=== PATIENT | male | born 1955 | race Caucasian/White ===

== ENCOUNTER 2017-02-03 01:11 | Inpatient (IN) | payer OTHER, MEDICARE ==
[~2017-02-03] VITALS: Ht 167.6 cm; Wt 77.6 kg
[2017-02-03] VITALS (13 sets, daily range): BP systolic 100–154; BP diastolic 63–96; PULSE 67–92; RESP 16–20; TEMP 96.7–98.1; O2SAT 94–100
[~2017-02-03 01:11] MED LIST: CHOL1CAP6 PO; DIPH25 PO; FLUO20TA20 PO; FOLI1TAB PO; LACT20SO4 PO; LASI20TA PO; METHO500 PO; PERC10TA27 PO; PRAV20 PO; PROP20TA3 PO; PROT40TA PO; QUET1TAB65 PO; QUET300 PO; SUPETAB30 PO; VITA100T13; Z.0.WALKERFRONT
[2017-02-03] MEDS ORDERED: PROP20TA3 PO (01:49)
[2017-02-03] MEDS ORDERED: LACTPOW (01:49)
[2017-02-03] MEDS ORDERED: PRAV20TA2 PO (01:49)
[2017-02-03] MEDS ORDERED: QUET300XR PO (01:49)
[2017-02-03] MEDS ORDERED: FURO1TAB62 PO (01:49)
[2017-02-03] MEDS ORDERED: FLUO20CA4 PO (01:49)
[2017-02-03] MEDS ORDERED: LACT10SO27 PO (01:49)
[2017-02-03] MEDS ORDERED: PANT20 PO (01:49)
[2017-02-03] MEDS ORDERED: BENA25CA4 (01:49)
[2017-02-03] MEDS ORDERED: DIAZ5TAB PO (01:52)
[2017-02-03] MEDS ORDERED: SPIR25TA PO (01:52)
[2017-02-03] MEDS ORDERED: RESP: ALBUTEROL 2.5 MG/IPRATROPIUM 0.5 MG NEB (SCH) NEB ONE ×2 (02:30→05:30)
[2017-02-03] MEDS ORDERED: SODIUM CHLORIDE 0.9% FLUSH 10 ML FLUSH IV FLUSH PRN (02:30)
[2017-02-03 02:38] LABS: CHLORIDE 99 MEQ/L (98-107); POTASSIUM 3.5 MEQ/L (3.5-5.1); SODIUM (NA) 138 MEQ/L (136-145)
[2017-02-03 02:42] LABS: ANION GAP 11 MEQ/L (5-15); BICARBONATE 28.2 MEQ/L (21.0-32.0); BLOOD UREA NITROGEN 11 MG/DL (7-18); MAGNESIUM 2.3 MG/DL (1.5-2.5)
[2017-02-03 02:43] LABS: AUTOMATED NEUTROPHIL # 14.8 TH/MM3 (1.8-7.7); BASOPHIL # 0.2 TH/MM3 (0-0.2); BASOPHIL % 1.1 % (0.0-2.0); EOSINOPHIL # 0.1 TH/MM3 (0-0.4); EOSINOPHIL % 0.4 % (0.0-4.0); HEMATOCRIT 35.6 % (39.0-51.0); LYMPH % 5.9 % (9.0-44.0); MEAN CELL VOLUME 87.5 FL (80.0-100.0); MEAN CORPUSCULAR HEMOGLOBIN 29.4 PG (27.0-34.0); MEAN CORPUSCULAR HGB CONC 33.6 % (32.0-36.0); MONO % 6.7 % (0.0-8.0); NEUT % 85.9 % (16.0-70.0); PLATELET COUNT 299 TH/MM3 (150-450); RED BLOOD COUNT 4.07 MIL/MM3 (4.50-5.90); WHITE BLOOD COUNT 17.3 TH/MM3 (4.0-11.0)
[2017-02-03 02:45] LABS: ALT (GPT) 61 U/L (12-78); AST (GOT) 22 U/L (15-37); GLOMERULAR FILTRATION RATE 47 ML/MIN (>89)
[2017-02-03] MEDS ORDERED: MORPHINE SULFATE 4 MG/ML INJ IV PUSH ONE ×2 (02:45→05:00)
[2017-02-03] MEDS ORDERED: ONDANSETRON HCL 4 MG/2 ML VIAL IV PUSH ONE (02:45)
[2017-02-03 02:46] LABS: TOTAL BILIRUBIN ADULT 0.8 MG/DL (0.2-1.0)
--- NOTE | 2017-02-03 02:47 | PD ---
HPI Chief Complaint: Abdominal Pain Time Seen by Provider: 02:16 Travel History International Travel<30 days: No Contact w/Intl Traveler<30days: No Traveled to known affect area: No History of Present Illness HPI 61-year-old male presents to the emergency department by private transportation for complaint of shortness of breath, cough, nausea, vomiting, diarrhea, and abdominal pain. Patient states symptoms began after eating old ice cream. Patient states symptoms have been present for approximately 1 day of progressively worsening. Patient has history of cirrhosis with intermittent abdominal pain. Patient states she's used milk of magnesia and Pepto-Bismol without symptomatically relief. Patient denies hematemesis coffee-ground emesis melena or hematochezia. Patient is also been coughing up yellow sputum. Patient denies fever or chills. No complaint of chest pain. Patient rates abdominal pain 7/10 in intensity. Patient is able to identify exacerbating or alleviating factors. Patient denies other dietary indiscretion well water ingestion or foreign travel. PFSH Past Medical History Narrative Medical Hypertension dyslipidemia chest pain anxiety depression bipolar disorder cirrhosis COPD renal insufficiency tonsillectomy appendectomy; denies alcohol for greater than a year denies tobacco use for greater than a year; nursing notes reviewed Arthritis: No Asthma: No Autoimmune Disease: No Bipolar Disorder: Yes Anxiety: Yes Depression: Yes Heart Rhythm Problems: Yes Cancer: Yes Cardiovascular Problems: Yes High Cholesterol: Yes Chemotherapy: No Chest Pain: Yes Congestive Heart Failure: No Cirrhosis: Yes COPD: No Cerebrovascular Accident: No Diabetes: No Diminished Hearing: No Endocrine: No Gastrointestinal Disorders: Yes GERD: Yes Genitourinary: Yes Headaches: Yes Hiatal Hernia: Yes (LEFT INGUINAL) Hypertension: Yes Implanted Vascular Access Dvce: No Kidney Stones: No Musculoskeletal: Yes Neurologic: Yes Psychiatric: Yes Reproductive: No Respiratory: No Migraines: No Radiation Therapy: No Renal Failure: Yes Seizures: No Ulcer: No Past Surgical History Abdominal Surgery: Yes (HERNIA REPAIR, APPENDECTOMY) Appendectomy: Yes Cardiac Surgery: No Ear Surgery: No Endocrine Surgery: No Eye Surgery: Yes (LASIK) Genitourinary Surgery: No Neurologic Surgery: No Oral Surgery: Yes (TONSILLECTOMY) Thoracic Surgery: No Tonsillectomy: Yes Other Surgery: Yes (SALIVARY GLAND REMOVAL) Social History Alcohol Use: No (ETOH ABUSE) Tobacco Use: No (previous smoker) Substance Use: Yes (MARIJUANA ) Allergies-Medications (Allergen,Severity, Reaction): Coded Allergies: No Known Allergies (Verified , 02/03/17) Reported Meds & Prescriptions Reported Meds & Active Scripts Active Reported Spironolactone 25 Mg Tab 12.5 Mg PO DAILY Diazepam 5 Mg Tab 5 Mg PO BID PRN Benadryl Allergy (Diphenhydramine HCl) 25 Mg Cap Pravastatin 20 Mg Tab 20 Mg PO DAILY Propranolol (Propranolol HCl) 20 Mg Tab 20 Mg PO Q12HR Seroquel XR (Quetiapine Fumarate) 300 Mg Tab 300 Mg PO DAILY Protonix (Pantoprazole Sodium) 20 Mg Tab 20 Mg PO DAILY Lasix (Furosemide) 20 Mg Tab 20 Mg PO DAILY Fluoxetine (Fluoxetine HCl) 20 Mg Cap 20 Mg PO DAILY Lactulose Liq (Lactulose (Encephalopathy) Liq) 19 Gm/15 Ml Soln 30 Ml PO TID Review of Systems Except as stated in HPI: all other systems reviewed are Neg General / Constitutional: No: Fever, Chills HENT: No: Congestion Cardiovascular: No: Chest Pain or Discomfort, Diaphoresis, Dyspnea on exertion Respiratory: Positive: Shortness of Breath, No: Wheezing Gastrointestinal: Positive: Nausea, Vomiting, Diarrhea, Abdominal Pain, No: Hematemesis, Hematochezia, Loss of Appetite Genitourinary: No: Dysuria, Flank Pain Musculoskeletal: No: Myalgias Skin: No Rash Neurologic: No: Weakness Psychiatric: No: Anxiety Endocrine: No: Heat Intolerance Hematologic/Lymphatic: No: Easy Bruising Physical Exam Narrative GENERAL: Well-developed well-nourished male in no acute distress no respiratory distress SKIN: Warm and dry. HEAD: Normocephalic. EYES: No scleral icterus. No injection or drainage. NECK: Supple, trachea midline. No JVD or lymphadenopathy. CARDIOVASCULAR: Regular rate and rhythm without murmurs, gallops, or rubs. RESPIRATORY: Breath sounds equal bilaterally. No accessory muscle use. GASTROINTESTINAL: Abdomen soft, diffusely tender right upper quadrant and right lower quadrant greater than left upper quadrant/lower quadrant, nondistended. No guarding no rebound. No pulsatile mass. MUSCULOSKELETAL: No cyanosis, or edema. BACK: Nontender without obvious deformity. No CVA tenderness. Data Data Last Documented VS Vital Signs Date Time Temp Pulse Resp B/P Pulse Ox O2 Delivery O2 Flow Rate FiO2 02/03/17 05:30 94 21 02/03/17 05:00 18 02/03/17 04:24 69 145/78 02/03/17 04:21 98.0 Orders Complete Blood Count With Diff (02/03/17 02:16) Comprehensive Metabolic Panel (02/03/17 02:16) Lipase (02/03/17 02:16) Urinalysis - C+S If Indicated (02/03/17 02:16) Iv Access Insert/Monitor (02/03/17 02:16) Ecg Monitoring (02/03/17 02:16) Oximetry (02/03/17 02:16) Sodium Chloride 0.9% Flush (Ns Flush) (02/03/17 02:30) Electrocardiogram (02/03/17 02:16) Chest, Single Ap (02/03/17 02:16) Albuterol-Ipratropium Neb (Duoneb Neb) (02/03/17 02:30) Troponin I (02/03/17 02:16) Magnesium (Mg) (02/03/17 02:16) Ondansetron Inj (Zofran Inj) (02/03/17 02:45) Morphine Inj (Morphine Inj) (02/03/17 02:45) Ct Abd/Pel W Iv Contrast(Rout) (02/03/17 ) Ct Thorax/ Chest Wo Iv Contras (02/03/17 ) Lactic Acid (02/03/17 03:51) Blood Culture (02/03/17 03:51) Piperacil-Tazo 4.5 Gm Premix (Zosyn 4.5 (02/03/17 04:00) Iohexol 350 Inj (Omnipaque 350 Inj) (02/03/17 04:04) Morphine Inj (Morphine Inj) (02/03/17 05:00) Albuterol-Ipratropium Neb (Duoneb Neb) (02/03/17 05:30) Admit Order (Ed Use Only) (02/03/17 ) ^ Saline Lock (02/03/17 05:38) Resp Oxygen Allen C Titrat 1-4 L (02/03/17 ) Notify Dr: Other (02/03/17 05:38) Sodium Chloride 0.9% Flush (Ns Flush) (02/03/17 09:00) Sodium Chloride 0.9% Flush (Ns Flush) (02/03/17 05:45) NPO (02/03/17 05:41) Labs Laboratory Tests Test 02/03/17 02/03/17 02/03/17 02:10 03:00 04:00 White Blood Count 17.3 TH/MM3 Red Blood Count 4.07 MIL/MM3 Hemoglobin 12.0 GM/DL Hematocrit 35.6 % Mean Corpuscular Volume 87.5 FL Mean Corpuscular Hemoglobin 29.4 PG Mean Corpuscular Hemoglobin 33.6 % Concent Red Cell Distribution Width 13.0 % Platelet Count 299 TH/MM3 Mean Platelet Volume 8.9 FL Neutrophils (%) (Auto) 85.9 % Lymphocytes (%) (Auto) 5.9 % Monocytes (%) (Auto) 6.7 % Eosinophils (%) (Auto) 0.4 % Basophils (%) (Auto) 1.1 % Neutrophils # (Auto) 14.8 TH/MM3 Lymphocytes # (Auto) 1.0 TH/MM3 Monocytes # (Auto) 1.2 TH/MM3 Eosinophils # (Auto) 0.1 TH/MM3 Basophils # (Auto) 0.2 TH/MM3 CBC Comment DIFF FINAL Differential Comment Sodium Level 138 MEQ/L Potassium Level 3.5 MEQ/L Chloride Level 99 MEQ/L Carbon Dioxide Level 28.2 MEQ/L Anion Gap 11 MEQ/L Blood Urea Nitrogen 11 MG/DL Creatinine 1.50 MG/DL Estimat Glomerular Filtration 47 ML/MIN Rate Random Glucose 152 MG/DL Calcium Level 8.7 MG/DL Magnesium Level 2.3 MG/DL Total Bilirubin 0.8 MG/DL Aspartate Amino Transf 22 U/L (AST/SGOT) Alanine Aminotransferase 61 U/L (ALT/SGPT) Alkaline Phosphatase 183 U/L Troponin I LESS THAN 0.02 NG/ML Total Protein 7.7 GM/DL Albumin 3.1 GM/DL Lipase 121 U/L Urine Color YELLOW Urine Turbidity CLEAR Urine pH 7.0 Urine Specific [place] 1.008 Urine Protein NEG mg/dL Urine Glucose (UA) NEG mg/dL Urine Ketones NEG mg/dL Urine Occult Blood NEG Urine Nitrite NEG Urine Bilirubin NEG Urine Leukocyte Esterase NEG Urine WBC 0-2 /hpf Urine Squamous Epithelial 0-5 /hpf Cells Microscopic Urinalysis Comment CULT NOT INDICATED Lactic Acid Level 1.9 mmol/L [facility] Medical Decision Making Medical Screen Exam Complete: Yes Emergency Medical Condition: Yes Medical Record Reviewed: Yes Interpretation(s) EKG: Normal sinus rhythm rate [address] elevation or injury pattern change or ectopy noted CBC & BMP Diagram 02/03/17 02:10 Differential Diagnosis Abdominal pain, gastritis, pancreatitis, biliary colic/cholecystitis, gastroenteritis, colitis, diverticulitis, ACS, myocardial infarction, exacerbation COPD, pneumonia Narrative Course @ 2:42 after patient up out of bed to bathroom returns with complaint of increasing abdominal pain; patient administered DuoNeb updraft 1 and ordered morphine sulfate 4 mg IV along with Zofran 4 mg IV At 3:10 AM lab values resulted patient is identified to have leukocytosis of 17, 300 with left shift; lab values are grossly normal range; review of medical records indicates patient has had several imaging studies identified he does have in fact gallstones and chronic thickening of the gallbladder wall consistent with chronic gallbladder disease; last imaging in the system 2015. CT abdomen and pelvis ordered. At 4:30 patient noting recurrent pain is aware that chest x-ray was remarkable for possible infiltrate versus mass CT of the chest was ordered along with CT abdomen and pelvis it is 5:17 AM reading of the CT thorax and CTA abdomen and pelvis remain pending ; patient given additional morphine 2 mg IV for recurrent pain At 5:[address] reading per radiologist Dr. Mckeon no evidence of acute abdominal or pelvic process no masses are identified; cholelithiasis (" there are multiple stones within the gallbladder without wall thickening or pericholecystic fluid the largest measures 6 mm") case discussed with MD; patient comfortable at this time but may need further diagnostic imaging. In his 7 AM patient again complaining of abdominal pain ultrasound gallbladder added to patient's workup may require mrcp Sepsis Criteria SIRS Criteria (2 or more): WBC > 99409, < 4000 or > 10% bands Physician Communication Physician Communication call placed to [facility] service; discussed with Dr Devine --will admit to her service Diagnosis Primary Impression: Abdominal pain Qualified Code: R10.13 - Epigastric pain Additional Impressions: Lung infiltrate Cholelithiasis Qualified Code: K80.20 - Calculus of gallbladder without cholecystitis without obstruction Admitting Information Admitting Physician Requests: Luz Kaba MD February 03, 2017 02:47
[2017-02-03 02:48] LABS: ALKALINE PHOSPHATASE 183 U/L (45-117)
--- NOTE | 2017-02-03 02:58 | RADHPO ---
EXAM DATE/TIME: 02/03/2017 02:36 [facility] COMPARISON: CHEST SINGLE AP, February 27, 2014, 12:49. INDICATIONS : Chest pain. MEDICAL HISTORY : None. SURGICAL HISTORY : None. ENCOUNTER: Initial ACUITY: 1 day PAIN SCORE: 7/10 LOCATION: Bilateral chest FINDINGS: The cardiac silhouette is enlarged in transverse diameter. There is alveolar opacity adjacent to the minor fissure in the right middle lobe which may reflect an area of pneumonia or a neoplasm. CT scan is recommended for further evaluation if clinically indicated. No pleural effusions are identified. T he left lung is free of acute parenchymal opacity. The maximal diameter of this finding is 3.3 cm. CONCLUSION: 1. Pneumonia versus mass in the right base. CT scan is recommended for further evaluation if clinical ly indicated. Camilo Mckeon MD on February 03, 2017 at 2:55 Board Certified Radiologist. This report was verified electronically.
[2017-02-03 02:59] LABS: HEMO FLAGS DIFF FINAL
[2017-02-03 03:48] LABS: BLOOD, URINE NEG (NEG); GLUCOSE,URINE NEG (NEG); KETONE, URINE NEG (NEG); NITRITE,URINE NEG (NEG)
[2017-02-03 03:56] LABS: URINE COLOR YELLOW (YELLW/STRAW)
[2017-02-03 03:58] LABS: COMMENT (UR) CULT NOT INDICATED; CULTURE IF INDICATED CULT NOT INDICATED; SQUAMOUS EPITHELIAL CELL URINE 0-5 /hpf (0-5); WBC, URINE 0-2 /hpf (0-5)
[2017-02-03] MEDS ORDERED: PIPERACIL-TAZO 4.5 GM PREMIX 100 ML IV ONE (04:00)
[2017-02-03] MEDS ORDERED: IOHEXOL 350 MG/ML 10 ML VIAL (for RAD DIAG) IV ONE (04:04)
--- NOTE | 2017-02-03 05:15 | RADHPO ---
EXAM DATE/TIME: 02/03/2017 03:29 [facility] COMPARISON: No previous studies available for comparison. INDICATIONS : Abdominal pain. Nausea. Vomiting. Diarrhea. IV CONTRAST: 75 cc Omnipaque 350 (iohexol) IV ORAL CONTRAST: No oral contrast ingested. RADIATION DOSE: 19.02 CTDIvol (mGy) MEDICAL HISTORY : Cirrhosis. Hypertension. Carcinoma, oral cavity. SURGICAL HISTORY : Appendectomy. Inguinal hernia repair. ENCOUNTER: Initial ACUITY: 1 day PAIN SCALE: 10/10 LOCATION: Bilateral upper quadrant TECHNIQUE: Volumetric scanning of the abdomen and pelvis was performed. Using automated exposure control and ad justment of the mA and/or kV according to patient size, radiation dose was kept as low as reasonably achievable to obtain optimal diagnostic quality images. FINDINGS: Examination of the lung bases demonstrates no abnormality. No pleural fluid is identified. No pulmona ry nodules are present. The liver and spleen are normal in size and no focal defects are identified. There are multiple stones within the gallbladder without wall thickening or pericholecystic fluid the largest measuring 6 mm. The pancreas demonstrates no evidence of mass and there is no dilatation of the pancreatic duct. The adrenal glands and kidneys appear normal bilaterally. No hydronephrosis or m ass lesions are identified. Examination of the pelvis demonstrates no evidence of free fluid or pelvic mass. No abnormally enlarg ed inguinal or retroperitoneal lymph nodes are present. The bladder is unremarkable. CONCLUSION: 1. No evidence of acute abdominal or pelvic process. No masses are identified. 2. Cholelithiasis Camilo Mckeon MD on February 03, 2017 at 5:08 Board Certified Radiologist. This report was verified electronically.
--- NOTE | 2017-02-03 05:21 | RADHPO ---
EXAM DATE/TIME: 02/03/2017 03:44 [facility] COMPARISON: No previous studies available for comparison. INDICATIONS : Pneumonia versus mass in the right base. RADIATION DOSE: 19.35 CTDIvol (mGy) MEDICAL HISTORY : Hypertension. Cirrhosis. Carcinoma, oral cavity. SURGICAL HISTORY : None. ENCOUNTER: Initial ACUITY: 1 day PAIN SCALE: 10/10 LOCATION: chest TECHNIQUE: Volumetric scanning of the chest was performed. Using automated exposure control and adjustment of t he mA and/or kV according to patient size, radiation dose was kept as low as reasonably achievable to obtain optimal diagnostic quality images. FINDINGS: There is a 5.2 x 3.7 cm mass in the right middle lobe. Malignancy is not excluded. No pleural effusio ns are identified. Examination of the mediastinum demonstrates no abnormally enlarged lymph nodes by CT criteria. No axi llary or hilar abnormalities are identified. Coronary artery calcifications are present. CONCLUSION: 1. 5.2 x 3.7 cm mass in the right middle lobe. Malignancy is not excluded. This would be accessible t o percutaneous biopsy. Camilo Mckeon MD on February 03, 2017 at 5:14 Board Certified Radiologist. This report was verified electronically.
[2017-02-03] MEDS ORDERED: NALOXONE HCL 0.4 MG/ML AMP IV PRN (05:45)
[2017-02-03] MEDS ORDERED: ONDANSETRON HCL 4 MG/2 ML VIAL IVP PRN (05:45)
[2017-02-03] MEDS ORDERED: SODIUM CHLORIDE 0.9% FLUSH 10 ML FLUSH IVF PRN (05:45)
[2017-02-03] MEDS ORDERED: MORPHINE SULFATE 4 MG/ML INJ IV PUSH PRN (06:00)
[2017-02-03] MEDS ORDERED: HYDROmorphone HCL PF 1 MG/ML VIAL IV PUSH ONE ×2 (06:45→11:15)
--- NOTE | 2017-02-03 08:29 | RADHPO ---
EXAM DATE/TIME: 02/03/2017 07:40 [facility] COMPARISON: US ABDOMEN - GALLBLADDER, November 01, 2015, 9:50. INDICATIONS : Gallstones. MEDICAL HISTORY : Hypercholesterolemia. Hypertension. Hernia, inguinal. Head trauma. Syncope. Numbness. Chest pain. Irr egular heartbeat. GERD. Renal failure. Cirrhosis. Degenerative disc disease. Bipolar disorder. Depre ssion. Anxiety. ETOH abuse. SURGICAL HISTORY : Tonsillectomy. Appendectomy. Inguinal hernia repair. Lasik. Salivary gland removed. ENCOUNTER: Initial ACUITY: 1 day PAIN SCORE: 4/10 LOCATION: Right upper quadrant MEASUREMENTS: LIVER: 16.7 cm length COMMON DUCT: 8 mm RIGHT KIDNEY: 9.4 x 5.4 x 5.7 cm FINDINGS: LIVER: Heterogeneous echotexture without focal lesion or ductal dilatation. Very tiny amount of ascites in a perihepatic distribution. COMMON DUCT: No intraluminal mass or stone visualized. GALLBLADDER: Dependent area of increased echogenicity suggesting sludge/small stones. PANCREAS: The visualized portions are within normal limits. RIGHT KIDNEY: No evidence of hydronephrosis, stone, or mass. CONCLUSION: 1. Dependent sludge/small stones in the gallbladder lumen, unchanged. 2. Heterogeneous hepatic echotexture suggesting scattered fatty infiltration. No focal mass lesions. 3. CBD is mildly prominent at 8 mm. 4. Very small amount of perihepatic ascites. Bang Archibald MD on February 03, 2017 at 8:19 Board Certified Radiologist. This report was verified electronically.
[2017-02-03] MEDS ORDERED: SODIUM CHLORIDE 0.9% FLUSH 10 ML FLUSH IV FLUSH SCH (09:00)
[2017-02-03] MEDS: SODIUM CHLORIDE 0.9% FLUSH 10 ML FLUSH IV FLUSH SCH ×2 (09:27→20:41)
--- NOTE | 2017-02-03 09:38 | HHI.HP ---
[facility] Alejandro Benjamin MD Admission Diagnosis abdominal pain h/o cholelithiasis; pneumonia-lung mass Diagnoses: Chief Complaint: Abdominal pain, nausea and vomiting Travel History International Travel<30 Days: No Contact w/Intl Traveler <30 Da: No Traveled to Known Affected Are: No History of Present Illness The patient is a 61-year-old male with past medical history of cirrhosis secondary to alcohol abuse who is presenting to the hospital with nausea/ vomiting/ diarrhea and abdominal pain. He states that a day and a half ago he got ice cream and was unable to finish it so he put the remainder of the ice cream in the freezer. Later on he took out the ice cream from the freezer and finished it and 6 hours later he started to develop nausea and vomiting. He believes he got food poisoning from the ice cream. He said that he took Pepto- Bismol and milk of magnesia. He tried to follow through with a bland diet to try and improve his symptoms. He also describes having diarrhea that he said was watery in nature. He also complained of right upper quadrant abdominal pain. The pain in the abdomen was quite severe in nature. He said his symptoms pretty much stopped when he came to the emergency department at 1 AM. The patient also endorses some shortness of breath and mucus production. Review of Systems Except as stated in HPI: all other systems reviewed are Neg Past Family Social History Past Medical History Hypertension Chronic kidney disease Liver cirrhosis History of salivary cancer s/p surgery Gastroesophageal reflux Anxiety/depression Hyperlipidemia Portal hypertensive gastropathy L4 fracture s/p surgery Necrotizing fasciitis of the right hand status post surgery Past Surgical History Thyroid gland tumor removed Appendectomy Hernia repair Tonsillectomy Lasik surgery Open reduction internal fixation of distal radius fracture Allergies: Coded Allergies: No Known Allergies (Verified , 02/03/17) Active Ordered Medications Current Medications Medications (Trade) Dose Ordered Sig/Raúl Route Start Time Stop Time Status Last Admin (NS Flush) 2 ml UNSCH PRN IV FLUSH 02/03/17 05:45 (NS Flush) 2 ml BID IV FLUSH 02/03/17 09:00 5/2/17 09:27 (Zofran Inj) 4 mg Q6H PRN IVP 02/03/17 05:45 (Narcan Inj) 0.4 mg UNSCH PRN IV 02/03/17 05:45 (Morphine Inj) 2 mg Q3H PRN IV PUSH 02/03/17 06:00 Family History DM Social History The patient quit smoking 2 years ago. He quit drinking in August. He uses marijuana occasionally. Physical Exam Vital Signs Vital Signs Date Time Temp Pulse Resp B/P Pulse Ox O2 Delivery O2 Flow Rate FiO2 02/03/17 07:15 18 02/03/17 07:06 97.9 73 18 124/88 98 Room Air 02/03/17 05:30 94 21 02/03/17 05:00 18 02/03/17 04:24 69 20 145/78 99 02/03/17 04:21 98.0 67 20 145/78 98 02/03/17 01:55 20 02/03/17 01:30 68 20 120/78 99 02/03/17 01:13 97.8 80 20 113/73 100 Physical Exam GENERAL: This is a well-nourished, well-developed patient, in no apparent distress. SKIN: No rashes, ecchymoses or lesions. Cool and dry. HEAD: Atraumatic. Normocephalic. No temporal or scalp tenderness. EYES: Pupils equal round and reactive. Extraocular motions intact. No scleral icterus. No injection or drainage. ENT: Nose without bleeding, purulent drainage or septal hematoma. Throat without erythema, tonsillar hypertrophy or exudate. Uvula midline. Airway patent. NECK: Trachea midline. No JVD or lymphadenopathy. Supple, nontender, no meningeal signs. CARDIOVASCULAR: Regular rate and rhythm without murmurs, gallops, or rubs. RESPIRATORY: Clear to auscultation. Breath sounds equal bilaterally. No wheezes , rales, or rhonchi. GASTROINTESTINAL: Abdomen soft, diffusely tender to palpation, especially in the right upper quadrant. No guarding or rebound. MUSCULOSKELETAL: Extremities without clubbing, cyanosis, or edema. No joint tenderness, effusion, or edema noted. NEUROLOGICAL: Awake and alert. Cranial nerves II through XII intact. Motor and sensory grossly within normal limits. Five out of 5 muscle strength in all muscle groups. Normal speech. PSYCH: Mood and affect appropriate. Laboratory Laboratory Tests Test 02/03/17 02/03/17 02/03/17 02:10 03:00 04:00 White Blood Count 17.3 Red Blood Count 4.07 Hemoglobin 12.0 Hematocrit 35.6 Mean Corpuscular Volume 87.5 Mean Corpuscular Hemoglobin 29.4 Mean Corpuscular Hemoglobin 33.6 Concent Red Cell Distribution Width 13.0 Platelet Count 299 Mean Platelet Volume 8.9 Neutrophils (%) (Auto) 85.9 Lymphocytes (%) (Auto) 5.9 Monocytes (%) (Auto) 6.7 Eosinophils (%) (Auto) 0.4 Basophils (%) (Auto) 1.1 Neutrophils # (Auto) 14.8 Lymphocytes # (Auto) 1.0 Monocytes # (Auto) 1.2 Eosinophils # (Auto) 0.1 Basophils # (Auto) 0.2 CBC Comment DIFF FINAL Differential Comment Sodium Level 138 Potassium Level 3.5 Chloride Level 99 Carbon Dioxide Level 28.2 Anion Gap 11 Blood Urea Nitrogen 11 Creatinine 1.50 Estimat Glomerular Filtration 47 Rate Random Glucose 152 Calcium Level 8.7 Magnesium Level 2.3 Total Bilirubin 0.8 Aspartate Amino Transf 22 (AST/SGOT) Alanine Aminotransferase 61 (ALT/SGPT) Alkaline Phosphatase 183 Troponin I LESS THAN 0.02 Total Protein 7.7 Albumin 3.1 Lipase 121 Urine Color YELLOW Urine Turbidity CLEAR Urine pH 7.0 Urine Specific [place] 1.008 Urine Protein NEG Urine Glucose (UA) NEG Urine Ketones NEG Urine Occult Blood NEG Urine Nitrite NEG Urine Bilirubin NEG Urine Leukocyte Esterase NEG Urine WBC 0-2 Urine Squamous Epithelial 0-5 Cells Microscopic Urinalysis Comment CULT NOT INDICATED Lactic Acid Level 1.9 Date/Time Procedure Status Source Growth 02/03/17 04:10 Aerobic Blood Culture Received Blood Peripheral Pending 02/03/17 04:10 Anaerobic Blood Culture Received Blood Peripheral Pending Result Diagram: 02/03/1720902/03/17209 Imaging Last Impressions Chest X-Ray 02/03/17215 Signed Impressions: Service Date/Time: Friday, February 03, 2017 02:36 - CONCLUSION: 1. Pneumonia versus mass in the right base. CT scan is recommended for further evaluation if clinically indicated. Camilo Mckeon MD Gall Bladder Ultrasound 02/03/17 0000 Signed Impressions: Service Date/Time: Friday, February 03, 2017 07:40 - CONCLUSION: 1. Dependent sludge/small stones in the gallbladder lumen, unchanged. 2. Heterogeneous hepatic echotexture suggesting scattered fatty infiltration. No focal mass lesions. 3. CBD is mildly prominent at 8 mm. 4. Very small amount of perihepatic ascites. Bang Archibald MD Chest CT 02/03/17 0000 Signed Impressions: Service Date/Time: Friday, February 03, 2017 03:44 - CONCLUSION: 1. 5.2 x 3.7 cm mass in the right middle lobe. Malignancy is not excluded. This would be accessible to percutaneous biopsy. Camilo Mckeon MD Abdomen/Pelvis CT 02/03/17 0000 Signed Impressions: Service Date/Time: Friday, February 03, 2017 03:29 - CONCLUSION: 1. No evidence of acute abdominal or pelvic process. No masses are identified. 2. Cholelithiasis Camilo Mckeon MD Assessment and Plan Assessment and Plan N/V/D/ Abdominal pain Started 6 hours after eating ice cream. Symptoms have largely resolved. CT with cholelithiasis. GB US: Dependent sludge/small stones in the gallbladder lumen, unchanged; Heterogeneous hepatic echotexture suggesting scattered fatty infiltration; No focal mass lesions; CBD is mildly prominent at 8 mm; Very small amount of perihepatic ascites. LFTs unremarkable except for Alk phos elevation of 183. Symptoms seem related to gastroenteritis from bad ice cream. - pain control with a bowel regimen. - antiemetics as needed. - consider a HIDA scan. Lung mass The pt endorses shortness of breath and mucous production. CT chest showed: 5.2 x 3.7 cm mass in the right middle lobe; Malignancy is not excluded; This would be accessible to percutaneous biopsy. - IR consult placed for biopsy. - Unasyn to cover for post-obstructive pneumonia. - sputum and blood cultures pending. - oxygen and nebs as needed. Cirrhosis Secondary to alcohol abuse. The patient has quit drinking in August. - Holding diuretics for now in the setting of renal insufficiency. - Hold lactulose for now on the setting of diarrhea. - Outpatient follow-up. Chronic renal disease Creatinine is slightly elevated at this time. - Hold diuretics and monitor. The patient does not appear fluid overloaded at this point. Leukocytosis Possibly secondary to viral gastritis versus lung mass versus postobstructive pneumonia. - Continue Unasyn. - Follow cultures. - Trend CBC. PPx: SCDs. Code Status Full. Discussed Condition With Pt, nurse. Ambrose Reddy DO February 03, 2017 09:38
[2017-02-03] MEDS: DIAZEPAM 5 MG TAB PO PRN (10:30)
[2017-02-03] MEDS: AMPICILLIN-SULBACTAM INJ 3 GM in SODIUM CHLORIDE 0.9% INJ 100 ML IV SCH ×3 (10:37→22:50)
[2017-02-03] MEDS: QUEtiapine FUMARATE 300 MG TAB PO SCH ×2 (10:38→21:57)
[2017-02-03 11:53] LABS: INTERNATIONAL NORMALIZED RATIO 1.1 RATIO; PROTHROMBIN TIME - PATIENT 11.8 SEC (9.8-11.6)
--- NOTE | 2017-02-03 11:54 | EKG ---
Date Performed: 02/03/2017 Time Performed: 02:39:26 PTAGE: 61 years EKG: Sinus rhythm Low QRS voltages in precordial leads Borderline ECG PREVIOUS TRACING : 11/01/2015 08.51 No significant change from previous tracing noted. DOCTOR: Joshua Quiroz Interpretating Date/Time 02/03/2017 11:51:33
--- NOTE | 2017-02-03 14:53 | RADHPO ---
EXAM DATE/TIME: 02/03/2017 13:59 [place] COMPARISON: CT ABDOMEN & PELVIS W CONTRAST, February 03, 2017, 3:29. US ABDOMEN - GALLBLADDER, February 03, 2017, 7:40. INDICATIONS : Cholelithiasis. Right upper quadrant pain. MEDICAL HISTORY : Hypertension. Cirrhosis. Cholelithiasis. SURGICAL HISTORY : Appendectomy. Tonsillectomy. Right wrist. ENCOUNTER: Subsequent ACUITY: 2 day PAIN SCORE: 3/10 LOCATION: Right upper quadrant abdomen. TECHNIQUE: Multiplanar, multisequence magnetic resonance imaging of the abdomen was performed. High-resolution 3D dataset was utilized to reconstruct maximum-intensity projection (MIP) images. FINDINGS: INTRAHEPATIC BILE DUCTS: Within normal limits. No significant anatomical variant is present. EXTRAHEPATIC BILE DUCTS: The common bile duct measures 7 mm 2 small filling defects are seen involving the common bile duct ne ar the ampulla. These measure 6 mm and 4 mm respectively. GALLBLADDER: The gallbladder is well distended. Stones and sludge observed within the gallbladder. No gallbladder wall thickening or pericholecystic fluid. LIVER: Normal size and signal intensity. No concerning liver lesion is identified on this non-contrast exam. PANCREAS: The main pancreatic duct is normal in size. There is no significant anatomical variant. Signal inte nsity is within normal limits. No mass is visualized on this non-contrast exam. OTHER: The remaining visualized structures demonstrate no acute abnormality on this non-contrast exam. Tiny renal cysts. CONCLUSION: 1. Suspected choledocholithiasis. 2 filling defects involving the inferior common bile duct measuring 6 and 4 mm. The common bile duct measures 7 mm which is just out of the range of normal for patient this age. 2. Sludge and stones involving the gallbladder. No pericholecystic fluid. Mejia Polk Jr., MD on February 03, 2017 at 14:43 Board Certified Radiologist. This report was verified electronically.
[2017-02-03] MEDS: HYDROmorphone HCL PF 1 MG/ML VIAL IV PUSH PRN ×2 (16:32→20:31)
--- NOTE | 2017-02-03 17:34 | MB ---
cc: LEONEL PENDLETON MD, HARRY MD DATE OF CONSULTATION 02/03/17 1955 HISTORY OF PRESENT ILLNESS The patient is a 61-year-old white male known to me from previous outpatient evaluations. I was asked to see him for abdominal pain, nausea and vomiting. He tells me two days ago, he started having right upper quadrant pain, fairly severe and constant, some nausea and some vomiting of food matter or bilious liquid but no blood. No fevers or shaking chills. No diarrhea. He says his stools are pretty regular at this point. He has a history of alcohol-induced cirrhosis of the liver. He tells me he stopped drinking in August of 2016. PAST MEDICAL HISTORY/PAST SURGICAL HISTORY 1. Hypertension, 2. Chronic kidney disease 3. Alcohol-induced cirrhosis 4. History of salivary cancer status post surgery. 5. Gastroesophageal reflux disease, 6. Anxiety with depression, 7. Hyperlipidemia, 8. Portal hypertensive gastropathy 9. L4 fracture status post surgery 10. History of necrotizing fasciitis of the right hand post surgery. 11. Thyroid gland tumor removed 12. Appendectomy, 13. Herniorrhaphy, 14. Tonsillectomy 15. LASIK surgery 16. Distal radius surgery. ALLERGIES None known to medications. MEDICATIONS Outpatient 1. Pantoprazole 40 mg daily. 2. Spironolactone 50 mg b.i.d. 3. Propranolol 10 mg b.i.d. FAMILY HISTORY Diabetes and heart attack. REVIEW OF SYSTEMS He has had no history of seizures or strokes. He denies headaches. He has had no vision difficulties or auditory problems. He has had no dysphagia or odynophagia. He denies early satiety. He has had no melena or hematochezia. He denies urinary symptoms. He has had no unexplained weight loss or weight gain. He denies any history of adrenal problems or pancreatic disease. His last panendoscopy was performed by me in November of 2015. This examination revealed no varices of the esophagus or stomach, portal hypertensive gastropathy was noted. No gastric antral vascular ectasias were seen. Colonoscopy at the same time revealed a diffusely edematous colon, a mall ascending colon polyp that was ablated. Minimal anusitis was noted. Outpatient MRI in October of 2015 revealed a cirrhotic liver with suggestion of fatty infiltration. There was a small amount of ascites. Gallstones were noted. Evidence of an old rib fracture was evident. PHYSICAL EXAMINATION VITAL SIGNS: Physical examination today reveals a weight of 18.3 kg, temperature of 97.4, pulse 86, respiratory 18, blood pressure 100/63. GENERAL: He is alert. He is oriented x3. HEENT: He is anicteric. Extraocular motions are intact. i appreciate no nystagmus or asterixis. I appreciate no spider angiomata or kaput medusae. LUNGS: Wheezing especially at the right base. CARDIAC: Regular rate and rhythm with no gross murmur or gallop. ABDOMEN: Good bowel sounds. No appreciable bruit. The abdomen is soft and there is moderate tenderness in the right upper quadrant with guarding. No pedal edema or palmar erythema. LABORATORY DATA On admission early this morning, white count 17.3, hemoglobin 12.0, MCV 87.5, platelet count 299, INR 1.1. Sodium 138, potassium 3.5, BUN 11, creatinine 1.5, AST, ALT and bilirubin all normal. Alkaline phosphatase elevated at 183, albumin low at 3.1, lipase 121. IMAGING STUDIES I reviewed the recent MRCP performed earlier today, with Dr. Mejia Polk. This reveals at least two common bile duct stones and sludge or small stones in the gallbladder. CT scan of the abdomen and pelvis revealed cholelithiasis with no other acute process. IMPRESSION Abdominal pain, nausea, vomiting with leukocytosis and significant right upper quadrant tenderness. He has choledocholithiasis and cholelithiasis and may have cholangitis and/or cholecystitis. Antibiotics have been started, including the ampicillin/sulbactam. PLAN Have patient transferred from [facility] to [facility] in [place] to undergo ERCP tomorrow. I reviewed the procedure with the patient including potential risks of medication reaction, bleeding, perforation, pancreatitis and a small chance of not succeeding. General surgical consult will be recommended to consider cholecystectomy subsequently. I understand there is a lung mass with a tentative biopsy scheduled for tomorrow. This can be postponed by a day to address the more concerning, infectious process. MD SAYRA Samson/ /4:50 PM 5:23 PM
[2017-02-03] MEDS: PROPRANOLOL HCL 20 MG TAB PO SCH (20:36)
[2017-02-04] VITALS (10 sets, daily range): BP systolic 100–116; BP diastolic 55–72; PULSE 76–86; RESP 16–19; TEMP 96.9–98.9; O2SAT 92–98
[2017-02-04] MEDS: SODIUM CHLORIDE 0.9% FLUSH 10 ML FLUSH IV FLUSH PRN ×4 (00:24→06:58)
[2017-02-04] MEDS: SODIUM CHLORIDE 0.9% FLUSH 10 ML FLUSH IV FLUSH SCH ×2 (00:47→20:52)
[2017-02-04] MEDS: HYDROmorphone HCL PF 1 MG/ML VIAL IV PUSH PRN ×5 (00:47→21:30)
[2017-02-04] MEDS ORDERED: CHLORHEXIDINE GLUCONATE 2 % 1 PACK (2 CLOTHS) TOPICAL PRN (03:30)
[2017-02-04] MEDS ORDERED: INSULIN HUMAN REGULAR 1,000 UNITS/10 ML VIAL SQ PRN (03:30)
[2017-02-04] MEDS ORDERED: POVIDONE IODINE 5% (ANTISEPSIS KIT) 4 APPLICATIONS EACH NARE PRN (03:30)
[2017-02-04] MEDS ORDERED: LACTATED RINGER'S 1000 ML IV PRN (03:30)
[2017-02-04] MEDS ORDERED: SODIUM CHLORID 0.9% 500 ML IV PRN (03:30)
[2017-02-04] MEDS: AMPICILLIN-SULBACTAM INJ 3 GM in SODIUM CHLORIDE 0.9% INJ 100 ML IV SCH ×4 (04:15→21:26)
[2017-02-04 06:58] LABS: AUTOMATED NEUTROPHIL # 9.5 TH/MM3 (1.8-7.7); BASOPHIL # 0.1 TH/MM3 (0-0.2); BASOPHIL % 0.8 % (0.0-2.0); EOSINOPHIL # 0.3 TH/MM3 (0-0.4); EOSINOPHIL % 2.5 % (0.0-4.0); HEMATOCRIT 34.3 % (39.0-51.0); HEMO FLAGS DIFF FINAL; LYMPH % 13.3 % (9.0-44.0); LYMPHOCYTE # 1.7 TH/MM3 (1.0-4.8); MEAN CELL VOLUME 87.8 FL (80.0-100.0); MEAN CORPUSCULAR HEMOGLOBIN 28.6 PG (27.0-34.0); MEAN CORPUSCULAR HGB CONC 32.5 % (32.0-36.0); MONO % 8.9 % (0.0-8.0); NEUT % 74.5 % (16.0-70.0); PLATELET COUNT 264 TH/MM3 (150-450); RED CELL DISTRIBUTION WIDTH 14.3 % (11.6-17.2); WHITE BLOOD COUNT 12.7 TH/MM3 (4.0-11.0)
[2017-02-04 07:16] LABS: ALT (GPT) 48 U/L (12-78); ANION GAP 7 MEQ/L (5-15); AST (GOT) 16 U/L (15-37); BICARBONATE 30.7 MEQ/L (21.0-32.0); BLOOD UREA NITROGEN 12 MG/DL (7-18); CHLORIDE 101 MEQ/L (98-107); GLOMERULAR FILTRATION RATE 55 ML/MIN (>89); POTASSIUM 4.3 MEQ/L (3.5-5.1); SODIUM (NA) 139 MEQ/L (136-145)
[2017-02-04 07:18] LABS: ALKALINE PHOSPHATASE 169 U/L (45-117); TOTAL BILIRUBIN ADULT 0.8 MG/DL (0.2-1.0)
[2017-02-04] MEDS: FLUoxetine HCL 20 MG CAP PO SCH (08:20)
[2017-02-04] MEDS: PROPRANOLOL HCL 20 MG TAB PO SCH ×2 (08:20→20:52)
[2017-02-04] MEDS: PRAVASTATIN SOD 20 MG TAB PO SCH (08:20)
[2017-02-04] MEDS: PANTOPRAZOLE SOD 20 MG DELAYED RELEASE TAB PO SCH (08:20)
[2017-02-04] MEDS ORDERED: PILL SPLITTER OTHER PRN (08:30)
[2017-02-04] MEDS: QUEtiapine FUMARATE 300 MG TAB PO SCH ×2 (08:42→20:52)
--- NOTE | 2017-02-04 11:11 | HHI.PR ---
Subjective Remarks Follow-up abdominal pain, lung mass. Patient continues to have right upper quadrant pain, but it is improved with pain medication. No nausea or vomiting this morning. He does have productive cough. Denies chest pain or dyspnea. Objective Vitals Vital Signs Date Time Temp Pulse Resp B/P Pulse Ox O2 Delivery O2 Flow Rate FiO2 02/04/17 10:30 97 21 02/04/17 08:00 97.7 77 18 116/71 96 02/04/17 07:40 16 02/04/17 05:31 98 02/04/17 04:18 97.3 81 16 105/67 98 02/04/17 00:32 96.9 76 16 102/65 94 02/03/17 21:53 74 02/03/17 20:35 96.7 92 16 114/74 95 02/03/17 16:00 98.0 86 18 113/77 98 02/03/17 12:00 97.4 86 18 100/63 99 I/O 02/03/17 02/03/17 02/03/17 02/04/17 02/04/17 02/04/17 07:00 15:00 23:00 07:00 15:00 23:00 Intake Total 100 ml 15 ml 240 ml 220 ml Output Total 200 ml Balance -100 ml 15 ml 240 ml 220 ml Intake Oral 240 ml 0 ml IV Total 100 ml 15 ml 220 ml Output Urine Total 200 ml # Voids 1 0 1 # Bowel Movements 1 0 0 Result Diagram: 02/04/17 0619 02/04/17 0619 Imaging Last Impressions Chest X-Ray 02/03/17 0216 Signed Impressions: Service Date/Time: Friday, February 03, 2017 02:36 - CONCLUSION: 1. Pneumonia versus mass in the right base. CT scan is recommended for further evaluation if clinically indicated. Camilo Mckeon MD Gall Bladder Ultrasound 02/03/17 0000 Signed Impressions: Service Date/Time: Friday, February 03, 2017 07:40 - CONCLUSION: 1. Dependent sludge/small stones in the gallbladder lumen, unchanged. 2. Heterogeneous hepatic echotexture suggesting scattered fatty infiltration. No focal mass lesions. 3. CBD is mildly prominent at 8 mm. 4. Very small amount of perihepatic ascites. Bang Archibald MD Cholangiopancreatography MRI 5/2/17 0000 Signed Impressions: Service Date/Time: Friday, February 03, 2017 13:59 - CONCLUSION: 1. Suspected choledocholithiasis. 2 filling defects involving the inferior common bile duct measuring 6 and 4 mm. The common bile duct measures 7 mm which is just out of the range of normal for patient this age. 2. Sludge and stones involving the gallbladder. No pericholecystic fluid. Mejia Polk Jr., MD Chest CT 02/03/17 Signed Impressions: Service Date/Time: Friday, February 03, 2017 03:44 - CONCLUSION: 1. 5.2 x 3.7 cm mass in the right middle lobe. Malignancy is not excluded. This would be accessible to percutaneous biopsy. Camilo Mckeon MD Abdomen/Pelvis CT 02/03/17 Signed Impressions: Service Date/Time: Friday, February 03, 2017 03:29 - CONCLUSION: 1. No evidence of acute abdominal or pelvic process. No masses are identified. 2. Cholelithiasis Camilo Mckeon MD Objective Remarks General: No acute distress. Heart: Regular rate and rhythm. No murmur. Lungs: Clear to auscultation bilaterally. No wheezes, rales, or rhonchi. Breathing is nonlabored. Abdomen: Soft, tender to palpation in the right upper quadrant, nondistended. Extremities: No lower extremity edema. Psych: Alert and oriented. Urinary Catheter: No Vascular Central Line Catheter: No A/P Problem List: (1) Abdominal pain ICD Code: R10.9 Status: Acute (2) Lung mass ICD Code: R91.8 Status: Acute (3) Cholelithiasis ICD Code: K80.20 Status: Acute (4) Lung infiltrate ICD Code: R91.8 Status: Acute (5) Cirrhosis of liver ICD Code: K74.60 Status: Chronic (6) Acute worsening of stage 3 chronic kidney disease ICD Code: N18.3 Status: Acute (7) Leukocytosis ICD Code: D72.829 Status: Acute Assessment and Plan 1. Abdominal pain, nausea, vomiting: Patient does continue to have right upper quadrant pain, however nausea and vomiting are improving. Appreciate GI recommendations. MRCP shows choledocholithiasis. ERCP to be done today. 2. Lung mass, infiltrate: Patient will need biopsy as malignancy is not excluded. Will plan to pursue this following GI workup. Continue Unasyn to cover for pneumonia. Sputum and blood cultures are pending. 3. Cirrhosis of the liver: Secondary to alcohol abuse. Patient reportedly quit drinking in August. Follow-up as outpatient with GI. 4. Acute renal insufficiency superimposed on chronic kidney disease stage III: Creatinine slightly improved today. Diuretics on hold. 5. Leukocytosis: Likely secondary to infection, gastritis versus pneumonia. Continue antibiotics. 6. DVT prophylaxis: SCDs. 7. CODE STATUS: Full code. Problem Qualifiers (1) Abdominal pain: Qualified Code: R10.11 - Right upper quadrant abdominal pain (2) Cholelithiasis: Qualified Code: K80.20 - Calculus of gallbladder without cholecystitis without obstruction José Swan MD February 04, 2017 11:11
--- NOTE | 2017-02-04 17:25 | HHI.GIFU ---
GI Follow-up Note Consult Follow-up Subjective: Patient laying in bed comfortably, no new complaints except mild RUQ pain. Pt was scheduled for ercp today at 4:30pm due to other cases running late and oncall OR .. decision was made to cancel procedure today and reschedule for tomorrow at 8 am. pt aware, no issues, no s/s of cholangitis. plan for ercp in am. abdo soft mild pain, normal bs. cvs rrr. lung ctab. no wheezing. It was a pleasure seeing Rony Wayne. Thank you for this consult. Entered by: Mikaela Bautista MD February 04, 2017 17:25
[2017-02-05] VITALS (7 sets, daily range): BP systolic 98–127; BP diastolic 61–71; PULSE 77–94; RESP 16–18; TEMP 97.2–99; O2SAT 93–98
[2017-02-05] MEDS: HYDROmorphone HCL PF 1 MG/ML VIAL IV PUSH PRN ×3 (04:09→20:36)
[2017-02-05] MEDS: AMPICILLIN-SULBACTAM INJ 3 GM in SODIUM CHLORIDE 0.9% INJ 100 ML IV SCH ×4 (04:15→21:24)
[2017-02-05] MEDS ORDERED: PROPOFOL 200 MG/20 ML AMP IV ONE (08:27)
[2017-02-05] MEDS ORDERED: IOHEXOL 350 MG/ML 100 ML BTL (for RAD DIAG) OTHER ONE (08:29)
[2017-02-05] MEDS ORDERED: LEVOFLOXACIN 500 MG PREMIX INJ 100 ML IV ONE ×2 (08:49→08:53)
[2017-02-05] MEDS ORDERED: LEVOFLOXACIN/DEXTROSE 500 MG/100 ML IVPB IV ONE (08:54)
--- NOTE | 2017-02-05 09:14 | GIPROC ---
[facility] [address] [facility]. [facility] [place] [facility], [address] ERCP PROCEDURE REPORT EXAM DATE: 02/05/2017 PATIENT NAME: Rony Wayne MR #: [id number] BIRTHDATE: 1955 ATTENDING: Mikaela Jay MD ORDER #: [id number] SAFETY COMPANION: Severiano Charles Stienbarger, Terrie, and Richard Medrano STATUS: inpatient INDICATIONS: The patient is a 61 yr old male here for an ERCP due to abdominal pain of suspected biliary origin, abnormal abdominal CT, therapy of bile duct stone(s), and established bile duct stone(s) PROCEDURE PERFORMED: ERCP with sphincterotomy/papillotomy ERCP with removal of calculus/calculi ERCP with stent placement MEDICATIONS: Per Anesthesia and None. CONSENT: The patient understands the risks and benefits of the procedure and understands that these risks include, but are not limited to: sedation, allergic reaction, infection, perforation and/or bleeding. Alternative means of evaluation and treatment include, among others: physical exam, x-rays, and/or surgical intervention. The patient elects to proceed with this endoscopic procedure. medical equipment was checked for proper function. Hand hygiene and appropriate measures for infection prevention was taken. After the risks, benefits and alternatives of the procedure were thoroughly explained, Informed was verified, confirmed and timeout was successfully executed by the treatment team. With the patient in left semi-prone position, medications were administered intravenously.The Pentax [id number] was passed from the mouth into the esophagus and further advanced from the esophagus into the stomach. From stomach scope was directed to the second portion of the duodenum. Major papilla was aligned with the duodenoscope. The scope position was confirmed fluoroscopically. Rest of the findings/therapeutics are given below. The scope was then completely withdrawn from the patient and the procedure completed. The pulse, BP, and O2 saturation were monitored and documented by the physician and the nursing staff throughout the entire procedure. The patient was cared for as planned according to standard protocol. The patient was then discharged to recovery in stable condition and with appropriate post procedure care. The ampulla was located the second portion of the duodenum. The ampulla appeared normal. Multiple stones were seen in the common bile duct. Contrast was injected into the bile duct and a cholangiogram obtained. Bile duct cannulation was attempted using the sphinctertome with guidewire. Cannulation of the bile duct was performed with ease. Deep cannulation with the sphincterotome was successfully achieved. With guidewire in the bile duct, a biliary sphincterotomy was performed using the sphincterotome. Using a stone extraction balloon the bile duct was swept several times. Three stones were removed from the bile duct successfully. Under endoscopic and fluoroscopic guidance, a 10Fr x 7 cm plastic stent was placed in the bile duct. Purulent material drained form bile duct. Indicating cholangitis. ADVERSE EVENT: There were no complications. IMPRESSIONS: 1. Normal appearing ampulla 2. Purulent material drained form bile duct. Indicating cholangitis 3. Common bile duct stone(s) x 3 4. 10 Fr x 7 cm Plastic stent placement RECOMMENDATIONS: 1. Antibiotics 2. Liver enzymes 3. Will need ERCP with stent removal in 4-6 weeks. REPEAT EXAM: ERCP Mikaela Jay MD eSigned: Mikaela Jay MD 02/05/2017 9:14 AM cc: PATIENT NAME: Rony Wayne MR#: [id number]
--- NOTE | 2017-02-05 09:42 | RADRPT ---
EXAM DATE/TIME: 02/05/2017 08:42 [facility] COMPARISON: MRCP W/O CONTRAST, February 03, 2017, 13:59. INDICATIONS : Stones, stent placement FLUORO TIME: .33 minutes IMAGE COUNT: CONTRAST: Instilled by Ordering Physician MEDICAL HISTORY : Cholelithiasis. SURGICAL HISTORY : Cholecystectomy. ENCOUNTER: Initial ACUITY: 1 day PAIN SCORE: Non-responsive. LOCATION: Abdomen FINDINGS: An ERCP was performed by the ordering physician. The images demonstrate opacification of the extrahepatic and intrahepatic biliary tree. 2 questionabl e filling defects within the lower common bile duct on one image. These could relate to stones or air bubbles. Final image shows a Silastic stent in place. CONCLUSION: ERCP as above. Mejia Polk Jr., MD on February 05, 2017 at 9:30 Board Certified Radiologist. This report was verified electronically.
[2017-02-05] MEDS ORDERED: DO NOT ADM ANY ANTICOAGULANT DRUGS PRN (09:45)
[2017-02-05] MEDS: FLUoxetine HCL 20 MG CAP PO SCH (10:08)
[2017-02-05] MEDS: PRAVASTATIN SOD 20 MG TAB PO SCH (10:08)
[2017-02-05] MEDS: QUEtiapine FUMARATE 300 MG TAB PO SCH ×2 (10:08→20:32)
[2017-02-05] MEDS: PROPRANOLOL HCL 20 MG TAB PO SCH ×2 (10:08→20:33)
[2017-02-05] MEDS: PANTOPRAZOLE SOD 20 MG DELAYED RELEASE TAB PO SCH (10:09)
--- NOTE | 2017-02-05 10:13 | HHI.PR ---
Subjective Remarks Follow up abdominal pain. Patient just returned from ERCP. Still having RUQ pain , but less today. No nausea/vomiting. Objective Vitals Vital Signs Date Time Temp Pulse Resp B/P Pulse Ox O2 Delivery O2 Flow Rate FiO2 02/05/17 09:45 98.1 84 20 131/76 97 Nasal Cannula 2 02/05/17 09:30 87 20 125/72 95 Nasal Cannula 4 02/05/17 09:18 98.1 91 20 133/75 100 Simple Mask 8 02/05/17 08:00 98.9 94 16 124/67 94 02/05/17 04:39 18 02/05/17 04:00 98.2 86 16 127/69 93 02/05/17 00:00 98.1 80 16 98/61 94 02/04/17 20:23 98.7 85 16 100/55 92 02/04/17 20:08 86 02/04/17 18:05 94 21 02/04/17 16:00 98.4 83 19 112/72 94 02/04/17 12:00 98.9 83 18 112/65 94 02/04/17 10:30 97 21 I/O 02/04/17 02/04/17 02/04/17 02/05/17 02/05/17 02/05/17 07:00 15:00 23:00 07:00 15:00 23:00 Intake Total 220 ml 0 ml 260 ml 0 ml 800 ml Balance 220 ml 0 ml 260 ml 0 ml 800 ml Intake Oral 0 ml 0 ml 260 ml 0 ml IV Total 220 ml Other 800 ml # Voids 1 3 1 3 # Bowel Movements 0 0 1 Result Diagram: 02/04/17 0619 02/04/17 0619 Imaging Last Impressions GI Procedure 02/05/17 0000 Signed Impressions: Service Date/Time: February 08:42 - CONCLUSION: ERCP as above. Mejia Polk Jr., MD Chest X-Ray 02/03/17 0216 Signed Impressions: Service Date/Time: Friday, February 03, 2017 02:36 - CONCLUSION: 1. Pneumonia versus mass in the right base. CT scan is recommended for further evaluation if clinically indicated. Camilo Mckeon MD Gall Bladder Ultrasound 02/03/17 0000 Signed Impressions: Service Date/Time: Friday, February 03, 2017 07:40 - CONCLUSION: 1. Dependent sludge/small stones in the gallbladder lumen, unchanged. 2. Heterogeneous hepatic echotexture suggesting scattered fatty infiltration. No focal mass lesions. 3. CBD is mildly prominent at 8 mm. 4. Very small amount of perihepatic ascites. Bang Archibald MD Cholangiopancreatography MRI 02/03/17 0000 Signed Impressions: Service Date/Time: Friday, February 03, 2017 13:59 - CONCLUSION: 1. Suspected choledocholithiasis. 2 filling defects involving the inferior common bile duct measuring 6 and 4 mm. The common bile duct measures 7 mm which is just out of the range of normal for patient this age. 2. Sludge and stones involving the gallbladder. No pericholecystic fluid. Mejia Polk Jr., MD Chest CT 02/03/17 0000 Signed Impressions: Service Date/Time: Friday, February 03, 2017 03:44 - CONCLUSION: 1. 5.2 x 3.7 cm mass in the right middle lobe. Malignancy is not excluded. This would be accessible to percutaneous biopsy. Camilo Mckeon MD Abdomen/Pelvis CT 02/03/17 0000 Signed Impressions: Service Date/Time: Friday, February 03, 2017 03:29 - CONCLUSION: 1. No evidence of acute abdominal or pelvic process. No masses are identified. 2. Cholelithiasis Camilo Mckeon MD Objective Remarks General: No acute distress. Heart: Regular rate and rhythm. No murmur. Lungs: Clear to auscultation bilaterally. No wheezes, rales, or rhonchi. Breathing is nonlabored. Abdomen: Soft, tender to palpation in the right upper quadrant, nondistended. Extremities: No lower extremity edema. Psych: Alert and oriented. Procedures 02/05/17 ERCP with stent placement Urinary Catheter: No Vascular Central Line Catheter: No A/P Problem List: (1) Abdominal pain ICD Code: R10.9 Status: Acute (2) Lung mass ICD Code: R91.8 Status: Acute (3) Cholelithiasis ICD Code: K80.20 Status: Acute (4) Lung infiltrate ICD Code: R91.8 Status: Acute (5) Cirrhosis of liver ICD Code: K74.60 Status: Chronic (6) Acute worsening of stage 3 chronic kidney disease ICD Code: N18.3 Status: Acute (7) Leukocytosis ICD Code: D72.829 Status: Acute Assessment and Plan 1. Abdominal pain, nausea, vomiting: Patient does continue to have right upper quadrant pain, however nausea and vomiting are improving. Appreciate GI recommendations. MRCP shows choledocholithiasis. S/P ERCP with stent placement. CBD stones removed. Findings consistent with cholangitis. 2. Lung mass, infiltrate: Patient will need biopsy as malignancy is not excluded. Will plan to pursue this following GI workup. Continue Unasyn to cover for pneumonia. Sputum and blood cultures are pending. 3. Cirrhosis of the liver: Secondary to alcohol abuse. Patient reportedly quit drinking in August. Follow-up as outpatient with GI. 4. Acute renal insufficiency superimposed on chronic kidney disease stage III: Monitor labs. Diuretics on hold. 5. Leukocytosis: Likely secondary to infection, gastritis versus pneumonia. Continue antibiotics. 6. DVT prophylaxis: SCDs. 7. CODE STATUS: Full code. Problem Qualifiers (1) Abdominal pain: Qualified Code: R10.11 - Right upper quadrant abdominal pain (2) Cholelithiasis: Qualified Code: K80.20 - Calculus of gallbladder without cholecystitis without obstruction José Swan MD February 05, 2017 10:12
[2017-02-05] MEDS: SODIUM CHLORIDE 0.9% FLUSH 10 ML FLUSH IV FLUSH SCH ×2 (10:16→20:37)
[2017-02-05] MEDS: DIAZEPAM 5 MG TAB PO PRN (20:33)
[2017-02-06] VITALS (8 sets, daily range): BP systolic 108–126; BP diastolic 59–73; PULSE 72–79; RESP 16–20; TEMP 97.8–99.3; O2SAT 91–95
[2017-02-06] MEDS: HYDROmorphone HCL PF 1 MG/ML VIAL IV PUSH PRN ×6 (00:36→21:02)
[2017-02-06] MEDS: AMPICILLIN-SULBACTAM INJ 3 GM in SODIUM CHLORIDE 0.9% INJ 100 ML IV SCH (04:23)
[2017-02-06] MEDS: QUEtiapine FUMARATE 300 MG TAB PO SCH ×2 (08:31→21:00)
[2017-02-06] MEDS: PRAVASTATIN SOD 20 MG TAB PO SCH (08:31)
[2017-02-06] MEDS: PANTOPRAZOLE SOD 20 MG DELAYED RELEASE TAB PO SCH (08:31)
[2017-02-06] MEDS: FLUoxetine HCL 20 MG CAP PO SCH (08:31)
[2017-02-06] MEDS: PROPRANOLOL HCL 20 MG TAB PO SCH ×2 (08:31→20:59)
[2017-02-06] MEDS: SODIUM CHLORIDE 0.9% FLUSH 10 ML FLUSH IV FLUSH SCH ×2 (08:33→20:59)
--- NOTE | 2017-02-06 10:29 | HHI.PR ---
Subjective Remarks Follow-up abdominal pain, lung mass. Patient reporting sharp pain in his right upper quadrant today. Not improving. No nausea or vomiting. No cough, dyspnea, chest pain. Objective Vitals Vital Signs Date Time Temp Pulse Resp B/P Pulse Ox O2 Delivery O2 Flow Rate FiO2 02/06/17 08:00 98.2 75 20 126/73 93 02/06/17 04:57 18 02/06/17 04:35 98.1 76 18 108/65 93 02/06/17 00:18 99.3 79 16 111/64 95 02/05/17 21:23 21 02/05/17 20:43 99.0 82 18 112/71 93 02/05/17 20:06 77 02/05/17 12:00 97.2 80 16 117/69 98 02/05/17 11:09 97 Nasal Cannula 2.00 I/O 02/05/17 02/05/17 02/05/17 02/06/17 02/06/17 02/06/17 07:00 15:00 23:00 07:00 15:00 23:00 Intake Total 0 ml 800 ml 240 ml 350 ml Balance 0 ml 800 ml 240 ml 350 ml Intake Oral 0 ml 240 ml 350 ml Other 800 ml # Voids 3 1 2 # Bowel Movements 1 1 0 Result Diagram: 02/04/1761802/04/1719 Imaging Last Impressions GI Procedure 02/05/17 0000 Signed Impressions: Service Date/Time: February 08:42 - CONCLUSION: ERCP as above. Mejia Polk Jr., MD Chest X-Ray 02/03/17 0216 Signed Impressions: Service Date/Time: Friday, February 03, 2017 02:36 - CONCLUSION: 1. Pneumonia versus mass in the right base. CT scan is recommended for further evaluation if clinically indicated. Camilo Mckeon MD Gall Bladder Ultrasound 02/03/17 0000 Signed Impressions: Service Date/Time: Friday, February 03, 2017 07:40 - CONCLUSION: 1. Dependent sludge/small stones in the gallbladder lumen, unchanged. 2. Heterogeneous hepatic echotexture suggesting scattered fatty infiltration. No focal mass lesions. 3. CBD is mildly prominent at 8 mm. 4. Very small amount of perihepatic ascites. Bang Archibald MD Cholangiopancreatography MRI 02/03/17 0000 Signed Impressions: Service Date/Time: Friday, February 03, 2017 13:59 - CONCLUSION: 1. Suspected choledocholithiasis. 2 filling defects involving the inferior common bile duct measuring 6 and 4 mm. The common bile duct measures 7 mm which is just out of the range of normal for patient this age. 2. Sludge and stones involving the gallbladder. No pericholecystic fluid. Mejia Polk Jr., MD Chest CT 02/03/17 Signed Impressions: Service Date/Time: Friday, February 03, 2017 03:44 - CONCLUSION: 1. 5.2 x 3.7 cm mass in the right middle lobe. Malignancy is not excluded. This would be accessible to percutaneous biopsy. Camilo Mckeon MD Abdomen/Pelvis CT 02/03/17 Signed Impressions: Service Date/Time: Friday, February 03, 2017 03:29 - CONCLUSION: 1. No evidence of acute abdominal or pelvic process. No masses are identified. 2. Cholelithiasis Camilo Mckeon MD Objective Remarks General: No acute distress. Heart: Regular rate and rhythm. No murmur. Lungs: Clear to auscultation bilaterally. No wheezes, rales, or rhonchi. Breathing is nonlabored. Abdomen: Soft, tender to palpation in the right upper quadrant, nondistended. Extremities: No lower extremity edema. Psych: Alert and oriented. Procedures 02/05/17 ERCP with stent placement Urinary Catheter: No Vascular Central Line Catheter: No A/P Problem List: (1) Abdominal pain ICD Code: R10.9 Status: Acute (2) Lung mass ICD Code: R91.8 Status: Acute (3) Cholelithiasis ICD Code: K80.20 Status: Acute (4) Lung infiltrate ICD Code: R91.8 Status: Acute (5) Cirrhosis of liver ICD Code: K74.60 Status: Chronic (6) Acute worsening of stage 3 chronic kidney disease ICD Code: N18.3 Status: Acute (7) Leukocytosis ICD Code: D72.829 Status: Acute Assessment and Plan 1. Abdominal pain, nausea, vomiting: Still having sharp right upper quadrant pain. Appreciate GI recommendations. MRCP shows choledocholithiasis. S/P ERCP with stent placement. CBD stones removed. Findings consistent with cholangitis. Discussed with Dr. Jay. Continue antibiotics. 2. Lung mass, infiltrate: We'll request interventional radiology for biopsy. 3. Cirrhosis of the liver: Secondary to alcohol abuse. Patient reportedly quit drinking in August. Follow-up as outpatient with GI. 4. Acute renal insufficiency superimposed on chronic kidney disease stage III: Monitor labs. Diuretics on hold. 5. Leukocytosis: Likely secondary to infection, gastritis versus pneumonia. Continue antibiotics. 6. DVT prophylaxis: SCDs. 7. CODE STATUS: Full code. Problem Qualifiers (1) Abdominal pain: Qualified Code: R10.11 - Right upper quadrant abdominal pain (2) Cholelithiasis: Qualified Code: K80.20 - Calculus of gallbladder without cholecystitis without obstruction José Swan MD February 06, 2017 10:29
[2017-02-06] MEDS: LEVOFLOXACIN 500 MG PREMIX INJ 100 ML IV SCH (12:13)
--- NOTE | 2017-02-06 12:46 | RADRPT ---
EXAM DATE/TIME: 02/06/2017 00:00 [facility] COMPARISON: CT THORAX W/O CONTRAST, February 03, 2017, 3:44. INDICATIONS : Right lung biopsy. FINDINGS: The patient's recent chest CT demonstrated a right middle lobe volume loss and suspected mass. A requ est was made today around [address]-guided biopsy of the mass. Unfortunately, the pat ient was not made n.p.o. and has recently eaten. Therefore, we without be unable to sedate the patien t until after 5 PM. I would not recommend starting elective percutaneous lung biopsy after hours josefina cially since the procedure is elective. They can be performed on outpatient basis or if the patient i s still an inpatient our facility and can be performed on Thursday. CONCLUSION: 1. The right middle lobe lung mass biopsy will not be performed today since the patient has recently eaten. We can perform as an outpatient electively or we would be happy to perform on Thursday if the pa tient is still an inpatient. 2. If the patient will still be in the hospital on Thursday, recommend making the patient n.p.o. after midnight on Thursday night in preparation for the procedure. Jose Fernández MD on February 06, 2017 at 12:41 Board Certified Radiologist. This report was verified electronically.
[2017-02-06] MEDS: DIAZEPAM 5 MG TAB PO PRN (21:00)
[2017-02-07 00:09] VITALS: BP 117/73; PULSE 74; RESP 16; TEMP 97.4; O2SAT 94
[2017-02-07] MEDS: HYDROmorphone HCL PF 1 MG/ML VIAL IV PUSH PRN ×6 (01:01→23:17)
[2017-02-07 04:37] VITALS: BP 124/74; PULSE 74; RESP 16; TEMP 96.6; O2SAT 94
[2017-02-07 07:33] LABS: AUTOMATED NEUTROPHIL # 5.1 TH/MM3 (1.8-7.7); BASOPHIL # 0.1 TH/MM3 (0-0.2); EOSINOPHIL # 0.2 TH/MM3 (0-0.4); EOSINOPHIL % 2.8 % (0.0-4.0); HEMATOCRIT 34.1 % (39.0-51.0); HEMO FLAGS DIFF FINAL; LYMPH % 20.1 % (9.0-44.0); LYMPHOCYTE # 1.5 TH/MM3 (1.0-4.8); MEAN CELL VOLUME 86.4 FL (80.0-100.0); MEAN CORPUSCULAR HGB CONC 33.6 % (32.0-36.0); MONO % 8.9 % (0.0-8.0); NEUT % 67.2 % (16.0-70.0); PLATELET COUNT 300 TH/MM3 (150-450); RED BLOOD COUNT 3.95 MIL/MM3 (4.50-5.90); RED CELL DISTRIBUTION WIDTH 14.1 % (11.6-17.2); WHITE BLOOD COUNT 7.6 TH/MM3 (4.0-11.0)
--- NOTE | 2017-02-07 07:47 | HHI.GIFU ---
GI Follow-up Note Consult Follow-up Subjective: Patient laying in bed comfortably, c/o pain in the RUQ. s/p ERCP with stone removal and stent placement. Objective: PHYSICAL EXAMINATION: Vitals signs stable No fever HEENT: Pupils round and reactive to light; normocephalic; atraumatic; no jaundice. Throat is clear. NECK: Neck is supple, no JVD, no lymphadenopathy. CHEST: Chest is clear to auscultation and percussion. CARDIAC: Regular rate and rhythm with no murmur gallop or rubs. ABDOMEN: Soft, nondistended, nontender; no hepatosplenomegaly; bowel sounds are present in all four quadrants. EXTREMITIES: No clubbing, cyanosis, or edema. SKIN: Normal; no rash; no jaundice. EXCELLENCE MANAGER: No focal deficits; alert and oriented times three. Available Data (labs, X- Rays, Procedues) : ASSESSMENT/PLAN: 1. Obstructive jaundice 2. CBD stones - s/p ERCP - stent placement 3. Cholecystitis 4. Lung lesion PLAN: 1. Due to persistent pain in RUQ may consider surgical consult for Radha evaluation 2. Monitor labs 3. Cont antibiotics. It was a pleasure seeing Rony Wayne. Thank you for this consult. Entered by: Mikaela Bautista MD February 07, 2017 07:47
[2017-02-07 07:50] VITALS: BP 118/74; PULSE 88; RESP 20; TEMP 98.4; O2SAT 96
[2017-02-07 08:04] LABS: ALKALINE PHOSPHATASE 218 U/L (45-117); ALT (GPT) 31 U/L (12-78); ANION GAP 9 MEQ/L (5-15); AST (GOT) 23 U/L (15-37); BICARBONATE 24.8 MEQ/L (21.0-32.0); BLOOD UREA NITROGEN 8 MG/DL (7-18); CHLORIDE 103 MEQ/L (98-107); GLOMERULAR FILTRATION RATE 66 ML/MIN (>89); POTASSIUM 3.9 MEQ/L (3.5-5.1); SODIUM (NA) 137 MEQ/L (136-145); TOTAL BILIRUBIN ADULT 0.6 MG/DL (0.2-1.0)
[2017-02-07] MEDS: PRAVASTATIN SOD 20 MG TAB PO SCH (08:46)
[2017-02-07] MEDS: FLUoxetine HCL 20 MG CAP PO SCH (08:46)
[2017-02-07] MEDS: PANTOPRAZOLE SOD 20 MG DELAYED RELEASE TAB PO SCH (08:47)
[2017-02-07] MEDS: PROPRANOLOL HCL 20 MG TAB PO SCH ×2 (08:47→21:38)
[2017-02-07] MEDS: QUEtiapine FUMARATE 300 MG TAB PO SCH ×2 (08:47→21:37)
[2017-02-07] MEDS: SODIUM CHLORIDE 0.9% FLUSH 10 ML FLUSH IV FLUSH SCH ×2 (08:49→21:00)
--- NOTE | 2017-02-07 10:06 | HHI.PR ---
Subjective Remarks Follow-up abdominal pain. Patient states that his right upper quadrant pain is improving. He is still having pain, which is sharp. No other complaints at this time. Objective Vitals Vital Signs Date Time Temp Pulse Resp B/P Pulse Ox O2 Delivery O2 Flow Rate FiO2 02/07/17 07:50 98.4 88 20 118/74 96 02/07/17 04:37 96.6 74 16 124/74 94 02/07/17 00:09 97.4 74 16 117/73 94 02/06/17 20:30 98.2 75 16 119/65 93 02/06/17 20:00 72 02/06/17 17:33 94 21 02/06/17 14:00 97.8 74 20 113/69 91 02/06/17 12:00 98.9 74 20 109/59 94 02/06/17 11:37 21 I/O 02/06/17 02/06/17 02/06/17 02/07/17 02/07/17 02/07/17 07:00 15:00 23:00 07:00 15:00 23:00 Intake Total 830 ml 430 ml 0 ml Output Total 400 ml Balance 830 ml 30 ml 0 ml Intake Oral 830 ml 430 ml 0 ml Output Urine Total 400 ml # Voids 5 1 2 # Bowel Movements 1 1 0 Result Diagram: 02/07/1770202/07/17 0703 Imaging Last Impressions Consultation 02/06/17 0000 Signed Impressions: Service Date/Time: Monday, February 06, 2017 00:00 - CONCLUSION: 1. The right middle lobe lung mass biopsy will not be performed today since the patient has recently eaten. We can perform as an outpatient electively or we would be happy to perform on Thursday if the patient is still an inpatient. 2. If the patient will still be in the hospital on Thursday, recommend making the patient n.p.o. after midnight on Thursday night in preparation for the procedure. Jose Fernández MD GI Procedure 02/05/17 0000 Signed Impressions: Service Date/Time: February 08:42 - CONCLUSION: ERCP as above. Mejia Polk Jr., MD Chest X-Ray 02/03/17 0216 Signed Impressions: Service Date/Time: Friday, February 03, 2017 02:36 - CONCLUSION: 1. Pneumonia versus mass in the right base. CT scan is recommended for further evaluation if clinically indicated. Camilo Mckeon MD Gall Bladder Ultrasound 02/03/17 Signed Impressions: Service Date/Time: Friday, February 03, 2017 07:40 - CONCLUSION: 1. Dependent sludge/small stones in the gallbladder lumen, unchanged. 2. Heterogeneous hepatic echotexture suggesting scattered fatty infiltration. No focal mass lesions. 3. CBD is mildly prominent at 8 mm. 4. Very small amount of perihepatic ascites. Bang Archibald MD Cholangiopancreatography MRI 02/03/17 Signed Impressions: Service Date/Time: Friday, February 03, 2017 13:59 - CONCLUSION: 1. Suspected choledocholithiasis. 2 filling defects involving the inferior common bile duct measuring 6 and 4 mm. The common bile duct measures 7 mm which is just out of the range of normal for patient this age. 2. Sludge and stones involving the gallbladder. No pericholecystic fluid. Mejia Polk Jr., MD Chest CT 02/03/17 Signed Impressions: Service Date/Time: Friday, February 03, 2017 03:44 - CONCLUSION: 1. 5.2 x 3.7 cm mass in the right middle lobe. Malignancy is not excluded. This would be accessible to percutaneous biopsy. Camilo Mckeon MD Abdomen/Pelvis CT 02/03/17 Signed Impressions: Service Date/Time: Friday, February 03, 2017 03:29 - CONCLUSION: 1. No evidence of acute abdominal or pelvic process. No masses are identified. 2. Cholelithiasis Camilo Mckeon MD Objective Remarks General: No acute distress. Heart: Regular rate and rhythm. No murmur. Lungs: Clear to auscultation bilaterally. No wheezes, rales, or rhonchi. Breathing is nonlabored. Abdomen: Soft, mildly tender to palpation in the right upper quadrant, nondistended. Extremities: No lower extremity edema. Psych: Alert and oriented. Procedures 02/05/17 ERCP with stent placement Urinary Catheter: No Vascular Central Line Catheter: No A/P Problem List: (1) Abdominal pain ICD Code: R10.9 Status: Acute (2) Lung mass ICD Code: R91.8 Status: Acute (3) Cholelithiasis ICD Code: K80.20 Status: Acute (4) Lung infiltrate ICD Code: R91.8 Status: Acute (5) Cirrhosis of liver ICD Code: K74.60 Status: Chronic (6) Acute worsening of stage 3 chronic kidney disease ICD Code: N18.3 Status: Acute (7) Leukocytosis ICD Code: D72.829 Status: Acute Assessment and Plan 1. Abdominal pain, nausea, vomiting: Still having sharp right upper quadrant pain, but he states it is improving. Appreciate GI recommendations. MRCP shows choledocholithiasis. S/P ERCP with stent placement. CBD stones removed. Findings consistent with cholangitis. Continue antibiotics. Discussed with Dr. Jay. Consult general surgery for possible cholecystectomy. 2. Lung mass, infiltrate: Interventional radiology to biopsy lung mass on Thursday if patient remains in the hospital over the weekend. 3. Cirrhosis of the liver: Secondary to alcohol abuse. Patient reportedly quit drinking in August. Follow-up as outpatient with GI. 4. Acute renal insufficiency superimposed on chronic kidney disease stage III: Monitor labs. Diuretics on hold. 5. Leukocytosis: Likely secondary to infection, gastritis versus pneumonia. Continue antibiotics. 6. DVT prophylaxis: SCDs. 7. CODE STATUS: Full code. Problem Qualifiers (1) Abdominal pain: Qualified Code: R10.11 - Right upper quadrant abdominal pain (2) Cholelithiasis: Qualified Code: K80.20 - Calculus of gallbladder without cholecystitis without obstruction José Swan MD February 07, 2017 10:06
[2017-02-07] MEDS: LEVOFLOXACIN 500 MG PREMIX INJ 100 ML IV SCH (11:00)
[2017-02-07] MEDS: NS + KCL 20 MEQ INJ 1,000 ML IV SCH (11:15)
[2017-02-07 11:50] VITALS: BP 106/69; PULSE 66; RESP 20; TEMP 96.6; O2SAT 93
[2017-02-07 15:50] VITALS: BP 133/75; PULSE 71; RESP 20; TEMP 96.8; O2SAT 96
--- NOTE | 2017-02-07 16:23 | MB ---
cc: JONATHAN SCALES M.D. DATE OF CONSULTATION: 02/07/2017 REASON FOR CONSULTATION Cholecystitis. HISTORY OF PRESENT ILLNESS The patient is a [id number] who presented to the emergency department with choledocholithiasis. The patient was transferred from the [facility] to the [facility] and underwent ERCP with stone extraction on 02/05. He has had gradual decrease in his white blood cell count but continues to have right upper quadrant discomfort and Dr. Jay recommended that we consider cholecystectomy during this hospital stay. I have discussed this with Dr. Swan as well. The patient relates that he has some pain still in the right midabdomen just above the umbilicus but not in the right subcostal region. PAST MEDICAL/SURGICAL HISTORY The patient's past medical history is significant for - 1. Hypercholesterolemia. 2. Hypertension. 3. Previous history of head trauma. 4. GE reflux disease. 5. Cirrhosis. 6. Bipolar disorder. 7. History of alcohol abuse. 8. He also has history of salivary cancer status post surgery. 9. He does have portal hypertensive gastropathy. 10. He had necrotizing fasciitis of the right hand requiring surgery. 11. L4 fracture with surgery. 12. Thyroid gland tumor removed. 13. Appendectomy. 14. Hernia repair. 15. Lasik surgery. 16. Open reduction, internal fixation of distal radius fracture. ALLERGIES HE HAS NO KNOWN ALLERGIES. SOCIAL HISTORY He quit smoking two years ago. PHYSICAL EXAMINATION GENERAL: Reveals an obese male in no acute distress. VITAL SIGNS: BP 106/69, pulse 66, respirations 20, temperature 96.6, 93% saturation on room air. HEENT: Sclerae anicteric. Pupils are reactive. NECK: Neck is supple. CHEST: Clear to auscultation. CARDIAC: Cardiac exam reveals a regular rate and rhythm without murmurs. ABDOMEN: Abdomen is protuberant, soft with tenderness to the right of the umbilicus. There is minimal right upper quadrant tenderness on the exam today. Pulses are intact. NEUROLOGIC: The patient has slight memory issues and had to ask me to repeat things twice to get facts straight in his head. LABORATORY VALUES WBC 7.6, platelets 300,000. Chemistries: BUN and creatinine 8 and 1.1, total bilirubin 0.6, AST 23, ALT 31, alkaline phosphatase 218. Lipase is normal at 121. Coagulation demonstrates an INR of 1.1. ASSESSMENT Multiple medical problems with a new finding of right middle lobe lung mass. This was seen on chest CT of 02/03/2017. Percutaneous biopsy was recommended. PLAN I have discussed with the patient that his surgical procedure is not urgent or emergent. I have recommended that he undergo lung biopsy on Thursday followed by surgery likely on Thursday. I do not wish to proceed with cholecystectomy in the face of portal hypertension and cirrhosis, as patients can have significant blood loss during the procedure and I do not wish him to have significant problems during the weekend. He vocalizes understanding of this. We will plan cholecystectomy accordingly at the beginning of the week. I will see him again on Thursday and depending on lung biopsy plans we will proceed accordingly. Thank you for this opportunity to see this very nice gentleman. MD SOL Goodwin/BJGonzalo /3:50 PM /3:59 PM
[2017-02-07 20:00] VITALS: BP 132/72; PULSE 70; PULSE 72; RESP 16; TEMP 97.8; O2SAT 96
[2017-02-07] MEDS: DIAZEPAM 5 MG TAB PO PRN (23:20)
[2017-02-08] VITALS: BP 102/63; PULSE 74; RESP 16; TEMP 97.6; O2SAT 94
[2017-02-08 04:00] VITALS: BP 108/64; PULSE 72; RESP 16; TEMP 96.7; O2SAT 96
[2017-02-08] MEDS: HYDROmorphone HCL PF 1 MG/ML VIAL IV PUSH PRN ×7 (04:09→23:24)
[2017-02-08] MEDS: NS + KCL 20 MEQ INJ 1,000 ML IV SCH ×4 (04:10→23:25)
[2017-02-08] MEDS: PANTOPRAZOLE SOD 20 MG DELAYED RELEASE TAB PO SCH (08:15)
[2017-02-08] MEDS: PROPRANOLOL HCL 20 MG TAB PO SCH ×2 (08:15→20:19)
[2017-02-08] MEDS: SODIUM CHLORIDE 0.9% FLUSH 10 ML FLUSH IV FLUSH SCH ×2 (08:15→20:19)
[2017-02-08] MEDS: PRAVASTATIN SOD 20 MG TAB PO SCH (08:15)
[2017-02-08] MEDS: FLUoxetine HCL 20 MG CAP PO SCH (08:15)
[2017-02-08] MEDS: QUEtiapine FUMARATE 300 MG TAB PO SCH ×2 (08:22→20:19)
[2017-02-08 08:26] VITALS: BP 120/72; PULSE 68; RESP 18; TEMP 97.3; O2SAT 95
--- NOTE | 2017-02-08 10:30 | HHI.PR ---
Subjective Subjective Notes no acute issues, tolerating diet, bili normal yesterday Objective Vitals/I&O Vital Signs Date Time Temp Pulse Resp B/P Pulse Ox O2 Delivery O2 Flow Rate FiO2 02/08/17 08:26 97.3 68 18 120/72 95 02/06/17 17:33 21 02/05/17 11:09 Nasal Cannula 2.00 Labs Date/Time Procedure Status Source Growth 02/03/17 20:50 Gram Stain - Final Complete Sputum Expectorated Sputum 02/03/17 20:50 Sputum Culture - Final Complete Sputum Expectorated Sputum HEAVY GROWTH NORMAL RESPIRATORY LA Abdomen: Other (soft mild ttp ruq) A/P Assessment and Plan cholangitis with choledocholithiasis, lung mass s/p Common bile duct stone(s) x 3, 10 Fr x 7 cm Plastic stent placement PLAN ok for diet, npo after mn for lung bx tomorrow will plan for lap ramy francesca thursday f/u labs Richard Holder MD February 08, 2017 10:30
[2017-02-08] MEDS: LEVOFLOXACIN 500 MG PREMIX INJ 100 ML IV SCH (10:51)
[2017-02-08 11:38] LABS: AUTOMATED NEUTROPHIL # 5.4 TH/MM3 (1.8-7.7); BASOPHIL # 0.1 TH/MM3 (0-0.2); EOSINOPHIL # 0.3 TH/MM3 (0-0.4); EOSINOPHIL % 3.5 % (0.0-4.0); HEMATOCRIT 33.4 % (39.0-51.0); HEMO FLAGS DIFF FINAL; LYMPH % 24.2 % (9.0-44.0); MEAN CELL VOLUME 86.3 FL (80.0-100.0); MEAN CORPUSCULAR HEMOGLOBIN 29.5 PG (27.0-34.0); MEAN CORPUSCULAR HGB CONC 34.2 % (32.0-36.0); MONO % 7.5 % (0.0-8.0); NEUT % 63.8 % (16.0-70.0); PLATELET COUNT 314 TH/MM3 (150-450); RED BLOOD COUNT 3.87 MIL/MM3 (4.50-5.90); RED CELL DISTRIBUTION WIDTH 13.8 % (11.6-17.2); WHITE BLOOD COUNT 8.4 TH/MM3 (4.0-11.0)
[2017-02-08 12:02] LABS: ALKALINE PHOSPHATASE 198 U/L (45-117); ALT (GPT) 29 U/L (12-78); ANION GAP 9 MEQ/L (5-15); AST (GOT) 18 U/L (15-37); BICARBONATE 23.8 MEQ/L (21.0-32.0); BLOOD UREA NITROGEN 9 MG/DL (7-18); CHLORIDE 104 MEQ/L (98-107); GLOMERULAR FILTRATION RATE 58 ML/MIN (>89); SODIUM (NA) 137 MEQ/L (136-145); TOTAL BILIRUBIN ADULT 0.5 MG/DL (0.2-1.0)
--- NOTE | 2017-02-08 12:26 | HHI.PR ---
Subjective Remarks Follow up abdominal pain, lung mass. Patient still having RUQ pain, but less than yesterday. No dyspnea, chest pain. Objective Vitals Vital Signs Date Time Temp Pulse Resp B/P Pulse Ox O2 Delivery O2 Flow Rate FiO2 02/08/17 08:26 97.3 68 18 120/72 95 02/08/17 04:00 96.7 72 16 108/64 96 02/08/17 00:00 97.6 74 16 102/63 94 02/07/17 20:00 97.8 72 16 132/72 96 02/07/17 20:00 70 02/07/17 15:50 96.8 71 20 133/75 96 I/O 02/07/17 02/07/17 02/07/17 02/08/17 02/08/17 02/08/17 07:00 15:00 23:00 07:00 15:00 23:00 Intake Total 0 ml 300 ml 518 ml 240 ml 640 ml Output Total 500 ml 800 ml 700 ml Balance 0 ml -200 ml -282 ml -460 ml 640 ml Intake Oral 0 ml 300 ml 240 ml 240 ml IV Total 278 ml 640 ml Output Urine Total 500 ml 800 ml 700 ml Bladder Scan Volume Amount 572 ml 575 ml 575 ml 575 ml 575 ml # Voids 2 # Bowel Movements 0 0 Result Diagram: 02/08/17 1110 02/08/17 1110 Imaging Last Impressions Consultation 02/06/17 0000 Signed Impressions: Service Date/Time: Monday, February 06, 2017 00:00 - CONCLUSION: 1. The right middle lobe lung mass biopsy will not be performed today since the patient has recently eaten. We can perform as an outpatient electively or we would be happy to perform on Thursday if the patient is still an inpatient. 2. If the patient will still be in the hospital on Thursday, recommend making the patient n.p.o. after midnight on Thursday night in preparation for the procedure. Jose Fernández MD GI Procedure 02/05/17 0000 Signed Impressions: Service Date/Time: February 08:42 - CONCLUSION: ERCP as above. Mejia Polk Jr., MD Chest X-Ray 02/03/17 0216 Signed Impressions: Service Date/Time: Friday, February 03, 2017 02:36 - CONCLUSION: 1. Pneumonia versus mass in the right base. CT scan is recommended for further evaluation if clinically indicated. Camilo Mckeon MD Gall Bladder Ultrasound 02/03/17 Signed Impressions: Service Date/Time: Friday, February 03, 2017 07:40 - CONCLUSION: 1. Dependent sludge/small stones in the gallbladder lumen, unchanged. 2. Heterogeneous hepatic echotexture suggesting scattered fatty infiltration. No focal mass lesions. 3. CBD is mildly prominent at 8 mm. 4. Very small amount of perihepatic ascites. Bang Archibald MD Cholangiopancreatography MRI 02/03/17 Signed Impressions: Service Date/Time: Friday, February 03, 2017 13:59 - CONCLUSION: 1. Suspected choledocholithiasis. 2 filling defects involving the inferior common bile duct measuring 6 and 4 mm. The common bile duct measures 7 mm which is just out of the range of normal for patient this age. 2. Sludge and stones involving the gallbladder. No pericholecystic fluid. Mejia Polk Jr., MD Chest CT 02/03/17 Signed Impressions: Service Date/Time: Friday, February 03, 2017 03:44 - CONCLUSION: 1. 5.2 x 3.7 cm mass in the right middle lobe. Malignancy is not excluded. This would be accessible to percutaneous biopsy. Camilo Mckeon MD Abdomen/Pelvis CT 02/03/17 Signed Impressions: Service Date/Time: Friday, February 03, 2017 03:29 - CONCLUSION: 1. No evidence of acute abdominal or pelvic process. No masses are identified. 2. Cholelithiasis Camilo Mckeon MD Objective Remarks General: No acute distress. Heart: Regular rate and rhythm. No murmur. Lungs: Clear to auscultation bilaterally. No wheezes, rales, or rhonchi. Breathing is nonlabored. Abdomen: Soft, mildly tender to palpation in the right upper quadrant, nondistended. Extremities: No lower extremity edema. Psych: Alert and oriented. Procedures 02/05/17 ERCP with stent placement Urinary Catheter: No Vascular Central Line Catheter: No A/P Problem List: (1) Abdominal pain ICD Code: R10.9 Status: Acute (2) Lung mass ICD Code: R91.8 Status: Acute (3) Cholelithiasis ICD Code: K80.20 Status: Acute (4) Lung infiltrate ICD Code: R91.8 Status: Acute (5) Cirrhosis of liver ICD Code: K74.60 Status: Chronic (6) Acute worsening of stage 3 chronic kidney disease ICD Code: N18.3 Status: Acute (7) Leukocytosis ICD Code: D72.829 Status: Acute Assessment and Plan 1. Abdominal pain, nausea, vomiting: Still having sharp right upper quadrant pain, but he states it is improving. Appreciate GI recommendations. MRCP shows choledocholithiasis. S/P ERCP with stent placement. CBD stones removed. Findings consistent with cholangitis. Continue antibiotics. Appreciate general surgery recommendations. Plan for cholecystectomy on Thursday. 2. Lung mass, infiltrate: Interventional radiology to biopsy lung mass tomorrow. 3. Cirrhosis of the liver: Secondary to alcohol abuse. Patient reportedly quit drinking in August. Follow-up as outpatient with GI. 4. Acute renal insufficiency superimposed on chronic kidney disease stage III: Monitor labs. Diuretics on hold. 5. Leukocytosis: Likely secondary to infection, gastritis versus pneumonia. Continue antibiotics. 6. DVT prophylaxis: SCDs. 7. CODE STATUS: Full code. Problem Qualifiers (1) Abdominal pain: Qualified Code: R10.11 - Right upper quadrant abdominal pain (2) Cholelithiasis: Qualified Code: K80.20 - Calculus of gallbladder without cholecystitis without obstruction José Swan MD February 08, 2017 12:26
[2017-02-08 12:30] VITALS: BP 105/68; PULSE 73; RESP 19; TEMP 97.7; O2SAT 93
[2017-02-08 16:00] VITALS: BP 104/69; PULSE 75; RESP 19; TEMP 97.9; O2SAT 95
[2017-02-08 20:00] VITALS: BP 112/64; PULSE 70; PULSE 76; RESP 17; TEMP 97.6; O2SAT 94
[2017-02-08] MEDS: DIAZEPAM 5 MG TAB PO PRN (20:24)
[2017-02-09] VITALS (12 sets, daily range): BP systolic 99–118; BP diastolic 59–74; PULSE 62–73; RESP 15–20; TEMP 96.7–98.3; O2SAT 94–98
[2017-02-09] MEDS: NS + KCL 20 MEQ INJ 1,000 ML IV SCH ×2 (04:58→20:32)
[2017-02-09] MEDS: HYDROmorphone HCL PF 1 MG/ML VIAL IV PUSH PRN ×3 (05:06→09:35)
[2017-02-09] MEDS: FLUoxetine HCL 20 MG CAP PO SCH (09:36)
[2017-02-09] MEDS: PANTOPRAZOLE SOD 20 MG DELAYED RELEASE TAB PO SCH (09:36)
[2017-02-09] MEDS: QUEtiapine FUMARATE 300 MG TAB PO SCH ×2 (09:36→20:29)
[2017-02-09] MEDS: PROPRANOLOL HCL 20 MG TAB PO SCH ×2 (09:36→20:30)
[2017-02-09] MEDS: PRAVASTATIN SOD 20 MG TAB PO SCH (09:36)
[2017-02-09] MEDS: SODIUM CHLORIDE 0.9% FLUSH 10 ML FLUSH IV FLUSH SCH ×2 (09:38→20:28)
--- NOTE | 2017-02-09 09:48 | HHI.PR ---
Subjective Remarks Follow-up cholecystitis, lung mass. Right upper quadrant abdominal pain is less today. No shortness of breath or chest pain. Scheduled for lung biopsy today. Objective Vitals Vital Signs Date Time Temp Pulse Resp B/P Pulse Ox O2 Delivery O2 Flow Rate FiO2 02/09/17 08:00 96.7 68 20 115/74 94 02/09/17 04:45 96.9 69 18 116/72 94 02/09/17 00:00 98.0 73 18 113/64 94 02/08/17 20:00 70 02/08/17 20:00 97.6 76 17 112/64 94 02/08/17 16:00 97.9 75 19 104/69 95 02/08/17 12:30 97.7 73 19 105/68 93 I/O 02/08/17 02/08/17 02/08/17 02/09/17 02/09/17 02/09/17 06:59 14:59 22:59 06:59 14:59 22:59 Intake Total 240 ml 1180 ml 1368 ml 903 ml Output Total 700 ml 800 ml 950 ml 600 ml Balance -460 ml 380 ml 418 ml 303 ml Intake Oral 240 ml 540 ml 450 ml IV Total 640 ml 918 ml 903 ml Output Urine Total 700 ml 800 ml 950 ml 600 ml Bladder Scan Volume Amount 575 ml 575 ml 575 ml # Bowel Movements 0 Result Diagram: 02/08/17 1110 02/08/17 1110 Imaging Last Impressions Consultation 02/06/17 0000 Signed Impressions: Service Date/Time: Monday, February 06, 2017 00:00 - CONCLUSION: 1. The right middle lobe lung mass biopsy will not be performed today since the patient has recently eaten. We can perform as an outpatient electively or we would be happy to perform on Thursday if the patient is still an inpatient. 2. If the patient will still be in the hospital on Thursday, recommend making the patient n.p.o. after midnight on Thursday night in preparation for the procedure. Jose Fernández MD GI Procedure 02/05/17 0000 Signed Impressions: Service Date/Time: February 08:42 - CONCLUSION: ERCP as above. Mejia Polk Jr., MD Chest X-Ray 02/03/17 0216 Signed Impressions: Service Date/Time: Friday, February 03, 2017 02:36 - CONCLUSION: 1. Pneumonia versus mass in the right base. CT scan is recommended for further evaluation if clinically indicated. Camilo Mckeon MD Gall Bladder Ultrasound 02/03/17 Signed Impressions: Service Date/Time: Friday, February 03, 2017 07:40 - CONCLUSION: 1. Dependent sludge/small stones in the gallbladder lumen, unchanged. 2. Heterogeneous hepatic echotexture suggesting scattered fatty infiltration. No focal mass lesions. 3. CBD is mildly prominent at 8 mm. 4. Very small amount of perihepatic ascites. Bang Archibald MD Cholangiopancreatography MRI 02/03/17 Signed Impressions: Service Date/Time: Friday, February 03, 2017 13:59 - CONCLUSION: 1. Suspected choledocholithiasis. 2 filling defects involving the inferior common bile duct measuring 6 and 4 mm. The common bile duct measures 7 mm which is just out of the range of normal for patient this age. 2. Sludge and stones involving the gallbladder. No pericholecystic fluid. Mejia Polk Jr., MD Chest CT 02/03/17 Signed Impressions: Service Date/Time: Friday, February 03, 2017 03:44 - CONCLUSION: 1. 5.2 x 3.7 cm mass in the right middle lobe. Malignancy is not excluded. This would be accessible to percutaneous biopsy. Camilo Mckeon MD Abdomen/Pelvis CT 02/03/17 Signed Impressions: Service Date/Time: Friday, February 03, 2017 03:29 - CONCLUSION: 1. No evidence of acute abdominal or pelvic process. No masses are identified. 2. Cholelithiasis Camilo Mckeon MD Objective Remarks General: No acute distress. Heart: Regular rate and rhythm. No murmur. Lungs: Clear to auscultation bilaterally. No wheezes, rales, or rhonchi. Breathing is nonlabored. Abdomen: Soft, mildly tender to palpation in the right upper quadrant, nondistended. Extremities: No lower extremity edema. Psych: Alert and oriented. Procedures 02/05/17 ERCP with stent placement Urinary Catheter: No Vascular Central Line Catheter: No A/P Problem List: (1) Abdominal pain ICD Code: R10.9 Status: Acute (2) Lung mass ICD Code: R91.8 Status: Acute (3) Cholelithiasis ICD Code: K80.20 Status: Acute (4) Lung infiltrate ICD Code: R91.8 Status: Acute (5) Cirrhosis of liver ICD Code: K74.60 Status: Chronic (6) Acute worsening of stage 3 chronic kidney disease ICD Code: N18.3 Status: Acute (7) Leukocytosis ICD Code: D72.829 Status: Acute Assessment and Plan 1. Abdominal pain, nausea, vomiting: Abdominal pain continues to improve. Appreciate GI recommendations. MRCP shows choledocholithiasis. S/P ERCP with stent placement. CBD stones removed. Findings consistent with cholangitis. Continue antibiotics. Appreciate general surgery recommendations. Plan for cholecystectomy tomorrow. 2. Lung mass, infiltrate: CT-guided lung biopsy today. 3. Cirrhosis of the liver: Secondary to alcohol abuse. Patient reportedly quit drinking in August. Follow-up as outpatient with GI. 4. Acute renal insufficiency superimposed on chronic kidney disease stage III: Monitor labs. Diuretics on hold. 5. Leukocytosis: Resolved. Likely secondary to infection, gastritis versus pneumonia. Continue antibiotics. 6. DVT prophylaxis: SCDs. 7. CODE STATUS: Full code. Problem Qualifiers (1) Abdominal pain: Qualified Code: R10.11 - Right upper quadrant abdominal pain (2) Cholelithiasis: Qualified Code: K80.20 - Calculus of gallbladder without cholecystitis without obstruction José Swan MD February 09, 2017 09:48
--- NOTE | 2017-02-09 12:19 | RADRPT ---
EXAM DATE/TIME: 02/09/2017 11:48 [facility] COMPARISON: CT NEEDLE BIOPSY LUNG, RIGHT, February 09, 2017, 10:59. INDICATIONS : Post right lung biopsy MEDICAL HISTORY : None. SURGICAL HISTORY : None. ENCOUNTER: Subsequent ACUITY: 4 - 6 days PAIN SCORE: 0/10 LOCATION: Right chest FINDINGS: A single frontal expiratory view of the chest was performed. Mass is again seen in the right mid vivek g. No evidence of pneumothorax. Mediastinal structures are in the midline. The cardio-mediastinal contours and bronchopulmonary markings are unremarkable for an expiratory exam . Osseous structures are intact. CONCLUSION: Negative for pneumothorax. Polo Gage MD FACR on February 09, 2017 at 12:15 Board Certified Radiologist. This report was verified electronically.
[2017-02-09] MEDS ORDERED: fentaNYL CITRATE 250 MCG/5 ML AMP IV ONE (14:46)
[2017-02-09] MEDS ORDERED: MIDAZOLAM HCL 5 MG/ML VIAL (1 ML) IV PUSH ONE (14:46)
[2017-02-09] MEDS: LEVOFLOXACIN 500 MG PREMIX INJ 100 ML IV SCH (16:05)
--- NOTE | 2017-02-09 16:39 | RADRPT ---
EXAM DATE/TIME: 02/09/2017 10:59 This report includes an Addendum and supersedes previous reports for this exam. [facility] COMPARISON: No previous studies available for comparison. INDICATIONS : Right lung mass. SEDATION TIME: 30 minutes BIOPSY SITE: Right lung MEDICATION(S): 1.) 3 mg midazolam (Versed) IV 2.) 150 mcg fentanyl (Sublimaze) IV DEVICE(S): 1.) 18 gauge Duarte blunt needle 2.) 20 gauge Temno core biopsy needle MEDICAL HISTORY : Cirrhosis. Chest pain. SURGICAL HISTORY : None. ENCOUNTER: Initial ACUITY: 1 day PAIN SCORE: 0/10 LOCATION: Right chest A total of three core specimen(s) were obtained and sent to the laboratory for pathologic evaluation. PROCEDURE: 1. CT guided lung biopsy. 2. Conscious sedation with continuous EKG and oximetry monitoring. 3. EKG and oximetry remained stable throughout the procedure. Prior to the procedure informed consent was obtained. Any appropriate prior imaging studies were rev iewed. Using automated exposure control and adjustment of the mA and/or kV according to patient size, radiation dose was kept as low as reasonably achievable to obtain optimal diagnostic quality images. The site was prepped in a sterile fashion. Full sterile technique was used, including cap, mask, yuniel rile gloves and gown and a large sterile sheet. Hand hygiene and 2% chlorhexidine and/or betadine/al cohol prep was utilized per protocol for cutaneous antisepsis. The skin and subcutaneous tissues wer e infiltrated with local anesthetic solution. With CT guidance the previously identified target was localized. Biopsy was performed using the presc ribed needle as above. Adequate hemostasis was obtained with compression at the puncture site. Follow-up CT scan reveals no pneumothorax. Conscious sedation was performed with the prescribed dosages and duration as above in the presence of an independent trained radiology nurse to assist in the monitoring of the patient. EKG and oximetry remained stable throughout the procedure. The patient tolerated the procedure well and there were no complications. The patient was sent to Radiology Outpatient Unit in stable condition. CONCLUSION: Uncomplicated CT guided biopsy of right lung mass. Slick Wilson MD on February 09, 2017 at 16:37 Board Certified Radiologist. This report was verified electronically. ADDENDUM: Pathology revealed acute suppurative and chronic organizing pneumonia. Neoplastic etiology is not excluded. Recommend aggressive antibiotic treatment and followup CT chest in 6-8 weeks to ensu re resolution. Patient may need a followup bronchoscopy and/or PET CT scan. Slick Wilson MD on February 11, 2017 at 12:29 Board Certified Radiologist. This report was verified electronically.
--- NOTE | 2017-02-09 17:29 | HHI.PR ---
Subjective Subjective Notes Feels well after lung biopsy Objective Vitals/I&O Vital Signs Date Time Temp Pulse Resp B/P Pulse Ox O2 Delivery O2 Flow Rate FiO2 02/09/17 16:00 97.7 66 18 118/72 98 02/09/17 14:23 Nasal Cannula 02/09/17 12:20 2.00 02/06/17 17:33 21 Abdomen: Non-tender A/P Assessment and Plan For Lap ramy tomorrow Risks, benefits, consequences, alternatives and convalescence discussed with patient; he vocalizes understanding and agrees to proceed. Discussed increased risk of bleeding/increased blood loss due to cirrhosis Ambrose Castaneda MD February 09, 2017 17:29
--- NOTE | 2017-02-09 18:00 | RADRPT ---
EXAM DATE/TIME: 02/09/2017 17:40 [facility] COMPARISON: CT NEEDLE BIOPSY LUNG, RIGHT, February 09, 2017, 10:59. CHEST EXPIRATION ONLY, February 09, 2017, 11:48. INDICATIONS : Pneumothorax. MEDICAL HISTORY : None. SURGICAL HISTORY : None. ENCOUNTER: Subsequent ACUITY: 1 day PAIN SCORE: 0/10 LOCATION: Right chest FINDINGS: Single expiratory view the chest was performed. Right basilar lung mass is noted. There is loss of pneumothorax following biopsy. CONCLUSION: No evidence of pneumothorax status post biopsy. Aki Coronel MD on February 09, 2017 at 17:56 Board Certified Radiologist. This report was verified electronically.
[2017-02-10] VITALS (7 sets, daily range): BP systolic 109–135; BP diastolic 66–85; PULSE 65–88; RESP 15–20; TEMP 96.3–99.1; O2SAT 94–98
[2017-02-10] MEDS ORDERED: MIDAZOLAM HCL 2 MG/2 ML VIAL ONE (08:28)
[2017-02-10] MEDS ORDERED: FAMOTIDINE 20 MG/2 ML VIAL ONE (08:28)
[2017-02-10] MEDS ORDERED: DEXAMETHASONE SOD PHOS 4 MG/ML VIAL ONE (08:28)
[2017-02-10] MEDS ORDERED: ACETAMINOPHEN 1000 MG/100 ML VIAL IV ONE (08:28)
[2017-02-10] MEDS: PRAVASTATIN SOD 20 MG TAB PO SCH (09:00)
[2017-02-10] MEDS: SODIUM CHLORIDE 0.9% FLUSH 10 ML FLUSH IV FLUSH SCH ×2 (09:00→21:00)
[2017-02-10] MEDS: PROPRANOLOL HCL 20 MG TAB PO SCH ×2 (09:00→22:00)
[2017-02-10] MEDS: PANTOPRAZOLE SOD 20 MG DELAYED RELEASE TAB PO SCH (09:00)
[2017-02-10] MEDS: FLUoxetine HCL 20 MG CAP PO SCH (09:00)
[2017-02-10] MEDS: QUEtiapine FUMARATE 300 MG TAB PO SCH ×2 (09:00→22:00)
[2017-02-10] MEDS ORDERED: IOHEXOL 300 MG/ML 50 ML BTL (for RAD DIAG) IV ONE (09:17)
[2017-02-10] MEDS ORDERED: BUPIVACAINE/EPINEPHRINE 0.25% PF 30 ML VIAL INFIL ONE (09:17)
[2017-02-10] MEDS ORDERED: metroNIDAZOLE 500 MG INJ 100 ML IV ONE (09:19)
[2017-02-10] MEDS: LEVOFLOXACIN 500 MG PREMIX INJ 100 ML IV SCH ×2 (09:20→11:37)
[2017-02-10] MEDS ORDERED: fentaNYL CITRATE 250 MCG/5 ML AMP ONE (09:47)
[2017-02-10] MEDS ORDERED: MORPHINE SULFATE 4 MG/ML INJ ONE (09:47)
--- NOTE | 2017-02-10 10:52 | HHI.PR ---
cc: Ambrose Castaneda MD Immediate Post Op Note Procedure Date: February 10, 2017 Pre Op Diagnosis: Cholecystitis with previous choledocholithiasis Post Op Diagnosis: Same Surgeon: Ambrose Castaneda Supervisor Carpenters(s): YADIRA Majano Procedure: Laparoscopic cholecystectomy Laparoscopic Chemo-cut liver biopsy Complications: None Specimen(s) removed: Gallbladder and stones to pathology Chemo-cut liver biopsy to pathology Estimated blood loss: 100 ml Anesthesia: General Drains: None IVF (1600 ml) Patient to: PACU Patient Condition: Good Date/Time of Procedure: SEE SURGICAL CARE RECORD Ambrose Castaneda MD February 10, 2017 10:52
[2017-02-10] MEDS ORDERED: DO NOT ADM ANY ANTICOAGULANT DRUGS PRN (11:00)
[2017-02-10] MEDS ORDERED: ACETAMINOPHEN/HYDROcodone 325 MG/7.5 MG TAB PO PRN ×2 (11:00)
[2017-02-10] MEDS: metroNIDAZOLE 500 MG INJ 100 ML IV SCH ×2 (11:00→17:33)
[2017-02-10] MEDS ORDERED: *morphine SULFATE 8 MG/ML PERIprocedure ONLY ONE ×2 (11:17→11:28)
--- NOTE | 2017-02-10 11:28 | HHI.PR ---
Subjective Remarks Follow-up cholecystitis, lung mass. Patient is seen in PACU following cholecystectomy, liver biopsy. He is sedated, but does awaken and answers questions. Reports significant abdominal pain. Objective Vitals Vital Signs Date Time Temp Pulse Resp B/P Pulse Ox O2 Delivery O2 Flow Rate FiO2 02/10/17 11:00 70 21 143/82 95 Nasal Cannula 4 02/10/17 10:48 97.8 81 13 144/80 90 Nasal Cannula 4 02/10/17 04:00 97.3 66 15 111/69 96 02/10/17 00:00 97.1 65 15 109/66 98 02/09/17 23:17 Nasal Cannula 2.00 02/09/17 20:30 Nasal Cannula 2.00 21 02/09/17 20:05 66 02/09/17 20:00 98.0 65 15 109/64 96 02/09/17 16:00 97.7 66 18 118/72 98 02/09/17 15:12 63 18 110/68 97 02/09/17 14:23 Nasal Cannula 02/09/17 12:50 62 20 107/68 97 02/09/17 12:20 67 20 99/59 97 02/09/17 12:20 Nasal Cannula 2.00 02/09/17 11:50 63 18 101/63 94 02/09/17 11:35 98.3 67 18 100/70 95 02/09/17 11:35 Nasal Cannula 2.00 I/O 02/09/17 02/09/17 02/09/17 02/10/17 02/10/17 02/10/17 07:00 15:00 23:00 07:00 15:00 23:00 Intake Total 903 ml 0 ml 1600 ml Output Total 600 ml 500 ml 1600 ml 1050 ml 600 ml Balance 303 ml -500 ml -1600 ml -1050 ml 1000 ml Intake Oral 0 ml IV Total 903 ml Other 1600 ml Output Urine Total 600 ml 500 ml 1600 ml 1050 ml 500 ml Estimated Blood Loss 100 ml Result Diagram: 02/08/17 1110 02/08/17 1110 Imaging Last Impressions Lung Biopsy CT 02/09/17 0000 Signed Impressions: Service Date/Time: Thursday, February 09, 2017 10:59 - CONCLUSION: Uncomplicated CT guided biopsy of right lung mass. Slick Wilson MD Chest X-Ray 02/09/17 Signed Impressions: Service Date/Time: Thursday, February 09, 2017 17:40 - CONCLUSION: No evidence of pneumothorax status post biopsy. Aki Coronel MD Consultation 02/06/17 Signed Impressions: Service Date/Time: Monday, February 06, 2017 00:00 - CONCLUSION: 1. The right middle lobe lung mass biopsy will not be performed today since the patient has recently eaten. We can perform as an outpatient electively or we would be happy to perform on Thursday if the patient is still an inpatient. 2. If the patient will still be in the hospital on Thursday, recommend making the patient n.p.o. after midnight on Thursday night in preparation for the procedure. Jose Fernández MD GI Procedure 02/05/17 Signed Impressions: Service Date/Time: February 08:42 - CONCLUSION: ERCP as above. Mejia Polk Jr., MD Gall Bladder Ultrasound 02/03/17 Signed Impressions: Service Date/Time: Friday, February 03, 2017 07:40 - CONCLUSION: 1. Dependent sludge/small stones in the gallbladder lumen, unchanged. 2. Heterogeneous hepatic echotexture suggesting scattered fatty infiltration. No focal mass lesions. 3. CBD is mildly prominent at 8 mm. 4. Very small amount of perihepatic ascites. Bang Archibald MD Cholangiopancreatography MRI 02/03/17 Signed Impressions: Service Date/Time: Friday, February 03, 2017 13:59 - CONCLUSION: 1. Suspected choledocholithiasis. 2 filling defects involving the inferior common bile duct measuring 6 and 4 mm. The common bile duct measures 7 mm which is just out of the range of normal for patient this age. 2. Sludge and stones involving the gallbladder. No pericholecystic fluid. Mejia Polk Jr., MD Chest CT 02/03/17 Signed Impressions: Service Date/Time: Friday, February 03, 2017 03:44 - CONCLUSION: 1. 5.2 x 3.7 cm mass in the right middle lobe. Malignancy is not excluded. This would be accessible to percutaneous biopsy. Camilo Mckeon MD Abdomen/Pelvis CT 02/03/17 Signed Impressions: Service Date/Time: Friday, February 03, 2017 03:29 - CONCLUSION: 1. No evidence of acute abdominal or pelvic process. No masses are identified. 2. Cholelithiasis Camilo Mckeon MD Objective Remarks General: No acute distress. Heart: Regular rate and rhythm. No murmur. Lungs: Clear to auscultation bilaterally. No wheezes, rales, or rhonchi. Breathing is nonlabored. Abdomen: Deferred Extremities: No lower extremity edema. Psych: Sedated, but awakens and answers questions. Procedures 02/05/17 ERCP with stent placement Urinary Catheter: No Vascular Central Line Catheter: No A/P Problem List: (1) Abdominal pain ICD Code: R10.9 Status: Acute (2) Lung mass ICD Code: R91.8 Status: Acute (3) Cholelithiasis ICD Code: K80.20 Status: Acute (4) Lung infiltrate ICD Code: R91.8 Status: Acute (5) Cirrhosis of liver ICD Code: K74.60 Status: Chronic (6) Acute worsening of stage 3 chronic kidney disease ICD Code: N18.3 Status: Acute (7) Leukocytosis ICD Code: D72.829 Status: Acute Assessment and Plan 1. Abdominal pain, nausea, vomiting: Abdominal pain continues to improve. Appreciate GI recommendations. MRCP shows choledocholithiasis. S/P ERCP with stent placement. CBD stones removed. Findings consistent with cholangitis. Continue antibiotics. Appreciate general surgery recommendations. Status post cholecystectomy, POD #0. 2. Lung mass, infiltrate: Status post CT-guided lung biopsy. Chest x-ray shows no pneumothorax following procedure. 3. Cirrhosis of the liver: Secondary to alcohol abuse. Patient reportedly quit drinking in August. Follow-up as outpatient with GI. 4. Acute renal insufficiency superimposed on chronic kidney disease stage III: Monitor labs. Diuretics on hold. 5. Leukocytosis: Resolved. Likely secondary to infection, gastritis versus pneumonia. Continue antibiotics. 6. DVT prophylaxis: SCDs. 7. CODE STATUS: Full code. Problem Qualifiers (1) Abdominal pain: Qualified Code: R10.11 - Right upper quadrant abdominal pain (2) Cholelithiasis: Qualified Code: K80.20 - Calculus of gallbladder without cholecystitis without obstruction José Swan MD February 10, 2017 11:28
[2017-02-10] MEDS ORDERED: PROPOFOL 200 MG/20 ML AMP IV ONE (12:00)
[2017-02-10] MEDS ORDERED: ONDANSETRON HCL 4 MG/2 ML VIAL IV PUSH ONE (12:00)
[2017-02-10] MEDS ORDERED: NEOSTIGMINE 3 MG/3 ML SYR IV ONE (12:00)
[2017-02-10] MEDS ORDERED: NORMOSOL R INJ 1,000 ML IV ONE (12:00)
[2017-02-10] MEDS: HYDROmorphone HCL PF 1 MG/ML VIAL IV PUSH PRN ×3 (14:38→21:59)
[2017-02-10] MEDS: DOCUSATE SODIUM 100 MG CAP PO SCH (22:00)
[2017-02-10] MEDS: NS + KCL 20 MEQ INJ 1,000 ML IV SCH (22:01)
[2017-02-11] VITALS (7 sets, daily range): BP systolic 99–119; BP diastolic 56–72; PULSE 71–81; RESP 18–19; TEMP 97–98.5; O2SAT 92–97
[2017-02-11] MEDS: metroNIDAZOLE 500 MG INJ 100 ML IV SCH ×3 (02:13→17:55)
[2017-02-11] MEDS: HYDROmorphone HCL PF 1 MG/ML VIAL IV PUSH PRN ×3 (02:14→10:26)
[2017-02-11] MEDS ORDERED: BISACODYL EC 5 MG TABEC PO ONE (05:00)
[2017-02-11 08:24] LABS: AUTOMATED NEUTROPHIL # 12.7 TH/MM3 (1.8-7.7); BASOPHIL # 0.1 TH/MM3 (0-0.2); BASOPHIL % 0.6 % (0.0-2.0); EOSINOPHIL % 0.2 % (0.0-4.0); HEMATOCRIT 34.7 % (39.0-51.0); HEMO FLAGS DIFF FINAL; LYMPH % 11.6 % (9.0-44.0); LYMPHOCYTE # 1.8 TH/MM3 (1.0-4.8); MEAN CELL VOLUME 87.1 FL (80.0-100.0); MEAN CORPUSCULAR HEMOGLOBIN 28.3 PG (27.0-34.0); MEAN CORPUSCULAR HGB CONC 32.4 % (32.0-36.0); MONO % 6.1 % (0.0-8.0); NEUT % 81.5 % (16.0-70.0); PLATELET COUNT 302 TH/MM3 (150-450); RED BLOOD COUNT 3.99 MIL/MM3 (4.50-5.90); RED CELL DISTRIBUTION WIDTH 14.5 % (11.6-17.2); WHITE BLOOD COUNT 15.6 TH/MM3 (4.0-11.0)
[2017-02-11 08:36] LABS: BICARBONATE 22.9 MEQ/L (21.0-32.0); POTASSIUM 4.1 MEQ/L (3.5-5.1)
[2017-02-11] MEDS: PANTOPRAZOLE SOD 20 MG DELAYED RELEASE TAB PO SCH (10:14)
[2017-02-11] MEDS: FLUoxetine HCL 20 MG CAP PO SCH (10:14)
[2017-02-11] MEDS: DOCUSATE SODIUM 100 MG CAP PO SCH ×2 (10:14→22:33)
[2017-02-11] MEDS: PROPRANOLOL HCL 20 MG TAB PO SCH ×2 (10:14→22:34)
[2017-02-11] MEDS: LEVOFLOXACIN 500 MG PREMIX INJ 100 ML IV SCH (10:15)
[2017-02-11] MEDS: QUEtiapine FUMARATE 300 MG TAB PO SCH ×2 (10:15→22:34)
[2017-02-11] MEDS: PRAVASTATIN SOD 20 MG TAB PO SCH (10:15)
[2017-02-11] MEDS: SODIUM CHLORIDE 0.9% FLUSH 10 ML FLUSH IV FLUSH SCH ×2 (10:16→21:00)
[2017-02-11] MEDS: NS + KCL 20 MEQ INJ 1,000 ML IV SCH ×2 (10:19→22:39)
--- NOTE | 2017-02-11 11:36 | HHI.PR ---
Subjective Remarks Follow-up for abdominal pain. Patient stated that he continues to abdominal pain and he got a dose of IV pain medication. He is asking to go home. Deny nausea vomiting. Tolerating oral intake. Patient stated he never had any episodes of shortness of breathing or cough. He stated that depending on the pollen he does cough up mucus intermittently. Patient remains afebrile. Objective Vitals Vital Signs Date Time Temp Pulse Resp B/P Pulse Ox O2 Delivery O2 Flow Rate FiO2 02/11/17 08:00 97.3 71 18 116/65 97 02/11/17 07:44 92 21 02/11/17 04:26 97.0 79 19 115/56 95 02/11/17 00:14 98.0 74 19 111/68 95 02/10/17 20:01 99.1 84 20 116/85 97 02/10/17 17:29 97 Nasal Cannula 2.00 02/10/17 17:00 98.7 88 18 113/68 94 02/10/17 13:24 Nasal Cannula 3.00 21 02/10/17 13:00 96.3 81 16 135/81 97 02/10/17 11:49 95 Nasal Cannula 3.00 02/10/17 11:45 70 13 140/77 96 Nasal Cannula 3 I/O 02/10/17 02/10/17 02/10/17 02/11/17 02/11/17 02/11/17 07:00 15:00 23:00 07:00 15:00 23:00 Intake Total 1700 ml 1200 ml 600 ml Output Total 1050 ml 600 ml 1300 ml 850 ml 300 ml Balance -1050 ml 1100 ml -100 ml -250 ml -300 ml Intake Oral 1200 ml 600 ml IV Total 100 ml Other 1600 ml Output Urine Total 1050 ml 500 ml 1300 ml 850 ml 300 ml Estimated Blood Loss 100 ml Bladder Scan Volume Amount 575 ml 575 ml # Bowel Movements 1 0 Result Diagram: 02/11/17 0756 02/11/17 0756 Objective Remarks GENERAL: in NAD. CARDIOVASCULAR: Regular rate and rhythm without murmurs, gallops, or rubs. RESPIRATORY: Breath sounds equal bilaterally. No accessory muscle use. GASTROINTESTINAL: Abdomen soft, + TTP in RUQ, nondistended. MUSCULOSKELETAL: No cyanosis, or edema. BACK: Nontender without obvious deformity. No CVA tenderness. Procedures 02/05/17 ERCP with stent placement 02/11/16 laparoscopic cholecystectomy with liver biopsy Medications and IVs Current Medications Sodium Chloride (NS Flush) 2 ml UNSCH PRN IV FLUSH FLUSH AFTER USING IV ACCESS Last administered on 02/03/17 02:54; Start 02/03/17 at 02:30; Stop 02/03/17 at 05: 49; Status DC Albuterol/ Ipratropium (Duoneb Neb) 1 ampule ONCE ONCE NEB Last administered on 02/03/17 02:29; Start 02/03/17 at 02:30; Stop 02/03/17 at 02:31; Status DC Ondansetron HCl (Zofran Inj) 4 mg ONCE ONCE IV PUSH Last administered on 02:53; Start 02/03/17 at 02:45; Stop 02/03/17 at 02:46; Status DC Morphine Sulfate 4 mg 4 mg ONCE ONCE IV PUSH Last administered on 02/03/17 02: 53; Start 02/03/17 at 02:45; Stop 02/03/17 at 02:46; Status DC Piperacillin Sod/ Tazobactam Sod (Zosyn 4.5 Gm Premix) 100 ml @ 200 mls/hr ONCE ONCE IV Last administered on 02/03/17 04:20; Start 02/03/17 at 04:00; Stop 02/03/17 at 04:29; Status DC Iohexol (Omnipaque 350 Inj) 75 ml STK-MED ONCE IV Last administered on 04:04; Start 02/03/17 at 04:04; Stop 02/03/17 at 04:05; Status DC Morphine Sulfate (Morphine Inj) 2 mg ONCE ONCE IV PUSH Last administered on 04:51; Start 02/03/17 at 05:00; Stop 02/03/17 at 05:01; Status DC Albuterol/ Ipratropium (Duoneb Neb) 1 ampule ONCE ONCE NEB Last administered on 02/03/17 05:30; Start 02/03/17 at 05:30; Stop 02/03/17 at 05:31; Status DC Sodium Chloride (NS Flush) 2 ml BID IV FLUSH ; Start 02/03/17 at 09:00; Stop 02/03 at 09:00; Status DC Sodium Chloride (NS Flush) 2 ml UNSCH PRN IVF FLUSH AFTER USING IV ACCESS; Start 02/03/17 at 05:45; Stop 02/03/17 at 05:50; Status DC Sodium Chloride (NS Flush) 2 ml UNSCH PRN IV FLUSH FLUSH AFTER USING IV ACCESS Last administered on 02/04/17 06:58; Start 02/03/17 at 05:45 Sodium Chloride (NS Flush) 2 ml BID IV FLUSH Last administered on 02/11/17 10: 16; Start 02/03/17 at 09:00 Ondansetron HCl (Zofran Inj) 4 mg Q6H PRN IVP NAUSEA OR VOMITING Last administered on 02/03/17 11:09; Start 02/03/17 at 05:45 Naloxone HCl (Narcan Inj) 0.4 mg UNSCH PRN IV SEE LABEL COMMENTS; Start at 05:45 Morphine Sulfate (Morphine Inj) 2 mg Q3H PRN IV PUSH Breakthrough pain Last administered on 02/03/17 11:07; Start 02/03/17 at 06:00; Stop 02/03/17 at 11:15; Status DC Hydromorphone HCl (Dilaudid Pf Inj) 0.5 mg ONCE ONCE IV PUSH Last administered on 02/03/17 06:50; Start 02/03/17 at 06:45; Stop 02/03/17 at 06:47; Status DC Diazepam (Valium) 5 mg BID PRN PO ANXIETY Last administered on 02/08/17 20:24; Start 02/03/17 at 09:45 Fluoxetine HCl (PROzac) 20 mg DAILY PO Last administered on 02/11/17 10:14; Start 02/04/17 at 09:00 Pantoprazole Sodium (Protonix) 20 mg DAILY PO Last administered on 02/11/17 10 :14; Start 02/04/17 at 09:00 Pravastatin Sodium (Pravachol) 20 mg DAILY PO Last administered on 02/11/17 10 :15; Start 02/04/17 at 09:00 Propranolol HCl (Inderal) 20 mg Q12HR PO Last administered on 02/11/17 10:14; Start 02/03/17 at 21:00 Quetiapine Fumarate 150 mg 150 mg BID PO Last administered on 02/11/17 10:15; Start 02/03/17 at 11:00 Ampicillin Sodium/ Sulbactam Sodium/ Sodium Chloride (Unasyn Inj/NS Inj) 100 ml @ 200 mls/hr Q6H IV Last administered on 02/06/17 04:23; Start 02/03/17 at 10: 00; Stop 02/06/17 at 10:29; Status DC Oxycodone HCl (Roxicodone) 5 mg Q4H PRN PO pain 1-5; Start 02/03/17 at 10:00; Stop 02/03/17 at 15:32; Status DC Oxycodone HCl (Roxicodone) 10 mg Q4H PRN PO pain 6-10 Last administered on 10:36; Start 02/03/17 at 10:00; Stop 02/03/17 at 15:32; Status DC Hydromorphone HCl (Dilaudid Pf Inj) 1 mg ONCE ONCE IV PUSH Last administered on 02/03/17 11:15; Start 02/03/17 at 11:15; Stop 02/03/17 at 11:19; Status DC Hydromorphone HCl (Dilaudid Pf Inj) 1 mg Q4H PRN IV PUSH Breakthrough pain Last administered on 02/10/17 19:23; Start 02/03/17 at 11:15 Hydromorphone HCl 0.5 mg 0.5 mg Q4H PRN IV PUSH pain 3-10 Last administered on 02/11/17 10:26; Start 02/03/17 at 15:30 Lactated Ringer's 1,000 ml @ 30 mls/hr Q24H PRN IV SEE LABEL COMMENTS; Start at 03:30; Stop 02/07/17 at 03:29; Status DC Sodium Chloride (NS 500 ml Inj) 500 ml @ 30 mls/hr [id number] PRN IV SEE LABEL COMMENTS; Start 02/04/17 at 03:30; Stop 02/07/17 at 03:29; Status DC Povidone Iodine (Betadine 5% Antisepsis Kit) 1 applic FENDER MECHANIC PRN EACH NARE SEE LABEL COMMENTS; Start 02/04/17 at 03:30; Stop 02/07/17 at 03:29; Status DC Chlorhexidine Gluconate (Chlorhexidine 2% Cloth) 3 pack FENDER MECHANIC PRN TOPICAL SEE LABEL COMMENTS; Start 02/04/17 at 03:30; Stop 02/07/17 at 03:29; Status DC Insulin Human Regular (NovoLIN R INJ) See Protocol Table ... FENDER MECHANIC PRN SQ SEE PROTOCOL TABLE; Start 02/04/17 at 03:30; Stop 02/07/17 at 03:29; Status DC Miscellaneous 1 ea 1 ea UNSCH PRN OTHER SEE LABEL COMMENTS; Start 02/04/17 at 08 :30 Levofloxacin/ Dextrose 100 ml @ As Directed STK-MED ONCE IV ; Start 02/05/17 at 08:49; Stop 02/05/17 at 08:50; Status DC Levofloxacin/ Dextrose (Levaquin 500 Mg Premix Inj) 100 ml @ As Directed STK- MED ONCE IV ; Start 02/05/17 at 08:53; Stop 02/05/17 at 08:54; Status DC Miscellaneous Information ALL NURSING DEPARTME... UNSCH PRN .XX SEE LABEL COMMENTS; Start 02/05/17 at 09:45; Stop 02/06/17 at 09:44; Status DC Fentanyl Citrate (fentaNYL INJ) 100 mcg STK-MED ONCE .ROUTE ; Start 02/05/17 at 09:37; Stop 02/05/17 at 09:38; Status DC Iohexol (Omnipaque 350 Inj) 100 ml STK-MED ONCE OTHER Last administered on t 08:29; Start 02/05/17 at 08:29; Stop 02/05/17 at 09:40; Status DC Propofol (Diprivan 200 Mg/20 ml Inj) 150 mg STK-MED ONCE IV ; Start 02/05/17 at 08:27; Stop 02/05/17 at 09:46; Status DC Levofloxacin/ Dextrose 500 mg 500 mg STK-MED ONCE IV ; Start 02/05/17 at 08:54; Stop 02/05/17 at 09:47; Status DC Levofloxacin/ Dextrose 100 ml @ 100 mls/hr Q24H IV Last administered on t 10:15; Start 02/06/17 at 11:00 Potassium Chloride/Sodium Chloride (NS + KCl 20 Meq Inj) 1,000 ml @ 84 mls/hr [id number] IV Last administered on 02/11/17 10:19; Start 02/07/17 at 11:15 Midazolam HCl (Versed Inj) 3 mg STK-MED ONCE IV PUSH Last administered on 11:00; Start 02/09/17 at 14:46; Stop 02/09/17 at 14:48; Status DC Fentanyl Citrate (fentaNYL INJ) 150 mcg STK-MED ONCE IV Last administered on 11:00; Start 02/09/17 at 14:46; Stop 02/09/17 at 14:48; Status DC Acetaminophen (Ofirmev Inj) 1,000 mg STK-MED ONCE IV ; Start 02/10/17 at 08:28; Stop 02/10/17 at 08:29; Status DC Famotidine (Pepcid Inj) 20 mg STK-MED ONCE .ROUTE ; Start 02/10/17 at 08:28; Stop 02/10/17 at 08:29; Status DC Midazolam HCl (Versed Inj) 2 mg STK-MED ONCE .ROUTE ; Start 02/10/17 at 08:28; Stop 02/10/17 at 08:29; Status DC Dexamethasone Sodium Phosphate 4 mg 4 mg STK-MED ONCE .ROUTE ; Start 02/10/17 at 08:28; Stop 02/10/17 at 08:29; Status DC Metronidazole (Flagyl 500 Mg Inj) 100 ml @ As Directed STK-MED ONCE IV Last administered on 02/10/17 09:20; Start 02/10/17 at 09:19; Stop 02/10/17 at 09:20; Status DC Bupivacaine HCl/ Epinephrine Bitart (Marcaine-Epi Pf 0.25% Inj) 30 ml STK-MED ONCE INFIL Last administered on 02/10/17 09:17; Start 02/10/17 at 09:17; Stop at 09:51; Status DC Iohexol (Omnipaque 300 Inj) 50 ml STK-MED ONCE IV Last administered on 09:17; Start 02/10/17 at 09:17; Stop 02/10/17 at 09:51; Status DC Fentanyl Citrate (fentaNYL INJ) 100 mcg STK-MED ONCE .ROUTE ; Start 02/10/17 at 09:47; Stop 02/10/17 at 09:48; Status DC Morphine Sulfate (Morphine Inj) 4 mg STK-MED ONCE .ROUTE ; Start 02/10/17 at 09: 47; Stop 02/10/17 at 09:48; Status DC Fentanyl Citrate 250 mcg 250 mcg STK-MED ONCE .ROUTE ; Start 02/10/17 at 09:47; Stop 02/10/17 at 09:48; Status DC Metronidazole (Flagyl 500 Mg Inj) 100 ml @ 100 mls/hr Q8H IV Last administered on 02/11/17 10:16; Start 02/10/17 at 11:00 Acetaminophen/ Hydrocodone Bitart ([place] 7.5-325 Mg) 1 tab Q4H PRN PO pain 1-5 ; Start 02/10/17 at 11:00 Acetaminophen/ Hydrocodone Bitart ([place] 7.5-325 Mg) 2 tab Q6H PRN PO pain 6- 10; Start 02/10/17 at 11:00 Miscellaneous Information ALL NURSING DEPARTME... UNSCH PRN .XX SEE LABEL COMMENTS; Start 02/10/17 at 11:00; Stop 02/11/17 at 10:59; Status DC Morphine Sulfate (*morphine INJ PERIprocedure ONLY) 8 mg STK-MED ONCE .ROUTE Last administered on 02/10/17 11:17; Start 02/10/17 at 11:17; Stop 02/10/17 at 11: 18; Status DC Morphine Sulfate (*morphine INJ PERIprocedure ONLY) 8 mg STK-MED ONCE .ROUTE Last administered on 02/10/17 11:28; Start 02/10/17 at 11:28; Stop 02/10/17 at 11: 29; Status DC Docusate Sodium (Colace) 100 mg BID PO Last administered on 02/11/17 10:14; Start 02/10/17 at 21:00 Bisacodyl (Dulcolax Ec) 5 mg ONCE ONCE PO Last administered on 02/11/17 06:28 ; Start 02/11/17 at 05:00; Stop 02/11/17 at 05:01; Status DC A/P Problem List: (1) Abdominal pain ICD Code: R10.9 Status: Acute (2) Lung mass ICD Code: R91.8 Status: Acute (3) Cholelithiasis ICD Code: K80.20 Status: Acute (4) Lung infiltrate ICD Code: R91.8 Status: Acute (5) Cirrhosis of liver ICD Code: K74.60 Status: Chronic (6) Acute worsening of stage 3 chronic kidney disease ICD Code: N18.3 Status: Acute (7) Leukocytosis ICD Code: D72.829 Status: Acute Assessment and Plan Cholecystitis with common bile duct obstruction - MRCP shows choledocholithiasis. S/P ERCP with stent placement. CBD stones removed. -Patient was on antibiotics for possible cholangitis. Clinically patient looks very well unsure if he had cholangitis did not did see any other documentation of this. Appreciate general surgery recommendations. Status post cholecystectomy with liver biopsy, POD #1. Lung mass, infiltrate: -Found on CT scan. Patient is dramatic. -Status post CT-guided lung biopsy on 02/11/16. - Chest x-ray shows no pneumothorax following procedure. -Biopsy showed chronic pneumonia. Will consult public affairs director in regards to the recommendation. -Patient is currently on antibiotics. Cirrhosis of the liver: - Secondary to alcohol abuse. Patient reportedly quit drinking in August. Follow-up as outpatient with GI. Acute renal insufficiency superimposed on chronic kidney disease stage III: -Diuretics was held. -Resolved. Leukocytosis: -Recurred. Most likely second very to reactive inflammation secondary surgery. DVT prophylaxis: SCDs. 7 Problem Qualifiers (1) Abdominal pain: Qualified Code: R10.11 - Right upper quadrant abdominal pain (2) Cholelithiasis: Qualified Code: K80.20 - Calculus of gallbladder without cholecystitis without obstruction Yumiko Reynolds MD February 11, 2017 11:36
--- NOTE | 2017-02-11 13:00 | MP ---
cc: JONATHAN SCALES M.D. DATE OF SURGERY: 02/10/2017 PROCEDURE 1. Laparoscopic cholecystectomy. 2. Chemo-Cut liver biopsy, right lobe of liver. PREOPERATIVE DIAGNOSIS Acute cholecystitis. POSTOPERATIVE DIAGNOSIS Acute cholecystitis with cirrhosis. ANESTHESIA General endotracheal. SURGEON Leonel PORTER HEAD Angelica Lopez, YADIRA COMPLICATIONS None. DRAINS None. ESTIMATED BLOOD LOSS 100 mL. FLUIDS 1600 mL crystalloid. PROCEDURE IN DETAIL The STAINED GLASS ARTIST was utilized for all portions of the procedure from the beginning to the end. Her presence was required for retraction, visualization and resection of important structures, as well as assisting with hemostasis. PROCEDURE IN DETAIL The patient was taken to the operating room and placed on the operating table in the supine position. After an adequate level of general endotracheal anesthesia was achieved the abdomen was prepped and draped in the usual fashion. A timeout was taken, confirming the correct patient, site and procedure to be performed. The skin and subcutaneous tissue was infiltrated with local anesthetic and an incision made in the umbilicus and carried through to the fascia sharply. The peritoneal cavity was directly visualized and a 12 mm balloon trocar was inserted and the balloon inflated. The abdomen was insufflated. The patient was placed in reverse Trendelenburg position. Three 5 mm trocars were placed, first to the right of falciform ligament, the second and third in the right subcostal region. All entered the abdominal cavity under direct vision uneventfully. The patient was noted to have gross cirrhosis. The gallbladder was retracted upward and omental adhesions were taken down off of the gallbladder with electro-dissection. When this was accomplished, the gallbladder appeared to be acutely inflamed. This was punctured and approximately 40 cc of cloudy purulent material was removed. This was sent for Gram stain and culture and sensitivity. The gallbladder was then able to be grasped and retracted up and over the dome of the liver. The cystic duct/infundibular junction and cystic artery were both circumferentially dissected. The cystic artery was doubly clipped proximally, singly clipped on the gallbladder side and divided. As the cystic duct was quite large in this individual, it was felt that clipping this would not be adequate and thus a dome-down approach was utilized to mobilize the gallbladder off of the liver bed. When this had been completed the liver bed was made hemostatic and a 0 PDS Endoloop was slipped over the cystic duct and cinched down slightly distally. This was placed far enough so that the common duct, which was visualized, was not crimped or impinged on in any way. After the Endoloop was cinched down, the cystic duct was divided and the gallbladder placed into an EndoCatch device and removed via the umbilical port after slightly enlarging the umbilical incision. The specimen was passed off the table. The upper abdomen was re-visualized. The liver bed, cystic artery stump and cystic duct stump were all seen to be clean and dry. A Chemo-Cut biopsy needle was brought in and two cores of liver were taken from the right lobe of the liver. Both biopsy sites were made completely hemostatic with electrocautery. Both specimens were sent off in formalin for pathologic analysis. All irrigation was aspirated and insufflation discontinued after confirming complete hemostasis. The upper abdominal trocars were removed under direct vision and no bleeding was noted from the trocar sites as the abdominal insufflation was released. The laparoscope and umbilical port were then removed. The fascia was closed in the umbilicus with simple interrupted and [id number] 0 Vicryl suture. The remaining local anesthetic was injected into each of the trocar sites and the skin closed with 4-0 Vicryl in an interrupted buried fashion. All trocar sites were dressed with Steri-Strips as was the Chemo-Cut needle puncture site. The patient was extubated and taken back to the recovery room in stable condition. He tolerated the procedure well. MD SOL Goodwin/NIKHIL /2:02 PM /12:48 PM
--- NOTE | 2017-02-11 13:51 | HHI.PR ---
Subjective Subjective Notes Pain tolerable but describes it as if someone punched him in the RUQ Asking to go home today ---needs to pay bills Objective Vitals/I&O Vital Signs Date Time Temp Pulse Resp B/P Pulse Ox O2 Delivery O2 Flow Rate FiO2 02/11/17 12:00 97.7 74 18 119/72 96 02/11/17 07:44 21 02/10/17 17:29 Nasal Cannula 2.00 Labs Laboratory Tests Test 02/11/17 07:56 White Blood Count 15.6 Red Blood Count 3.99 Hemoglobin 11.3 Hematocrit 34.7 Mean Corpuscular Volume 87.1 Mean Corpuscular Hemoglobin 28.3 Mean Corpuscular Hemoglobin 32.4 Concent Red Cell Distribution Width 14.5 Platelet Count 302 Mean Platelet Volume 8.9 Neutrophils (%) (Auto) 81.5 Lymphocytes (%) (Auto) 11.6 Monocytes (%) (Auto) 6.1 Eosinophils (%) (Auto) 0.2 Basophils (%) (Auto) 0.6 Neutrophils # (Auto) 12.7 Lymphocytes # (Auto) 1.8 Monocytes # (Auto) 1.0 Eosinophils # (Auto) 0.0 Basophils # (Auto) 0.1 CBC Comment DIFF FINAL Differential Comment Sodium Level 137 Potassium Level 4.1 Chloride Level 104 Carbon Dioxide Level 22.9 Anion Gap 10 Blood Urea Nitrogen 10 Creatinine 1.20 Estimat Glomerular Filtration 61 Rate Random Glucose 112 Calcium Level 9.0 Date/Time Procedure Status Source Growth 02/10/17 09:30 Gram Stain - Final Resulted Fluid Other 02/10/17 09:30 Body Fluid Culture - Preliminary Resulted Gram Negative Tray Cardiovascular: Regular Lungs: Clear Abdomen: Other (lap sites c/d/i; abd soft non distended), Post-op tenderness Extremities: No edema A/P Assessment and Plan 61 year old male with acute cholecystics -POD1 lap ramy -Continue Levaquin/Flagyl IV -Await bx results for lung -Await bx results from liver -Advance to heart healthy diet; encouraged small more frequent meals Attending Note - Dr. Castaneda Abdomen soft; steristrips intact; no erythema The exam, history, and the medical decision-making described in the above note were completed with the assistance of the mid-level provider. I reviewed and agree with the findings presented. I attest that I had a [id number] encounter with the patient on the same day, and personally performed and documented my assessment and findings in the medical record. Agnelica Lopez February 11, 2017 13:51 Ambrose Castaneda MD Mar 14, 2017 13:52
[2017-02-11] MEDS: BUDESONIDE-FORMOTEROL 80/4.5 MCG INHALER INH SCH (22:31)
[2017-02-12] VITALS: BP 115/65; PULSE 70; RESP 18; TEMP 98; O2SAT 92
[2017-02-12] MEDS: metroNIDAZOLE 500 MG INJ 100 ML IV SCH ×2 (01:47→09:54)
[2017-02-12 04:00] VITALS: BP 111/63; PULSE 71; RESP 18; TEMP 98.4; O2SAT 94
[2017-02-12 08:00] VITALS: BP 104/65; PULSE 68; RESP 18; TEMP 96.5; O2SAT 94
[2017-02-12] MEDS: LEVOFLOXACIN 500 MG PREMIX INJ 100 ML IV SCH (08:29)
[2017-02-12] MEDS: HYDROmorphone HCL PF 1 MG/ML VIAL IV PUSH PRN (08:30)
[2017-02-12] MEDS: DOCUSATE SODIUM 100 MG CAP PO SCH (08:30)
[2017-02-12] MEDS: BUDESONIDE-FORMOTEROL 80/4.5 MCG INHALER INH SCH (08:31)
[2017-02-12] MEDS: PROPRANOLOL HCL 20 MG TAB PO SCH (08:31)
[2017-02-12] MEDS: PANTOPRAZOLE SOD 20 MG DELAYED RELEASE TAB PO SCH (08:31)
[2017-02-12] MEDS: FLUoxetine HCL 20 MG CAP PO SCH (08:31)
[2017-02-12] MEDS: QUEtiapine FUMARATE 300 MG TAB PO SCH (08:31)
[2017-02-12] MEDS: PRAVASTATIN SOD 20 MG TAB PO SCH (08:31)
[2017-02-12] MEDS: SODIUM CHLORIDE 0.9% FLUSH 10 ML FLUSH IV FLUSH SCH (08:32)
--- NOTE | 2017-02-12 10:15 | HHI.PR ---
Subjective Subjective Notes Resting in bed eating breakfast Reports he has voided post Babb removal Objective Vitals/I&O Vital Signs Date Time Temp Pulse Resp B/P Pulse Ox O2 Delivery O2 Flow Rate FiO2 02/12/17 08:00 96.5 68 18 104/65 94 02/11/17 20:00 Nasal Cannula 3.00 02/11/17 07:44 21 Labs Date/Time Procedure Status Source Growth 02/10/17 09:30 Gram Stain - Final Complete Fluid Other 02/10/17 09:30 Body Fluid Culture - Final Complete Klebsiella Oxytoca Cardiovascular: Regular Lungs: Clear Abdomen: Other (RUQ tenderness; lap sites c/d/i; abd soft ) Extremities: No edema A/P Assessment and Plan 61 year old male with acute cholecystics -POD2 lap ramy -Continue Levaquin/Flagyl IV -bx results for lung---acute and chronic infection---pulmonology following -bx results from liver---cirrhosis -Tolerating diet Attending Note - Dr. Leonel Brennan intact Abdomen benign Tolerating diet The exam, history, and the medical decision-making described in the above note were completed with the assistance of the mid-level provider. I reviewed and agree with the findings presented. I attest that I had a [id number] encounter with the patient on the same day, and personally performed and documented my assessment and findings in the medical record. Angelica Lopez February 12, 2017 10:15 Ambrose Castaneda MD Mar 14, 2017 13:59
[2017-02-12] MEDS: NS + KCL 20 MEQ INJ 1,000 ML IV SCH (10:25)
[2017-02-12 12:00] VITALS: BP 112/69; PULSE 73; RESP 16; TEMP 97.5; O2SAT 95
--- NOTE | 2017-02-12 12:29 | MB ---
cc: RAMSES ALEJANDRE DATE OF CONSULTATION 02/11/2017 REASON FOR CONSULTATION Right mid-lung density. HISTORY OF PRESENT ILLNESS This is a 60-year-old white male with a history of cirrhosis with a past history of ethanolism who was admitted on 02/03/2017 with nausea, vomiting, abdominal pains and respiratory distress. The patient had been treated for cirrhosis and following admission also was noted to have loose stools and has had abdominal pains in the right upper quadrant for which he was started on IV fluids and antibiotics and further evaluation was done for gallbladder disease. The patient's gallbladder ultrasound showed small stones in the gallbladder lumen and the common bile duct. He was seen by General Surgery and apparently did undergo a cholecystectomy and has been recovering over the past few days. During the admission he was also found to have right midlung pneumonia versus lung mass and further workup for this lung mass was pursued including a needle aspiration of the lung density that was done on 02/10. The needle aspirate was reportedly showing a necrotizing pneumonia and the patient apparently had some evidence of aspiration during his bouts of vomiting. He, however, he is clinically improved with antibiotic therapy and following his cholecystectomy has received nebulizer treatments but his most recent chest x-ray shows still the right mid-lung infiltrate which may be resolving gradually. PAST HISTORY 1. History of cirrhosis of the liver. 2. Chronic kidney disease. 3. History of hypertension. 4. Hyperlipidemia. 5. Gastroesophageal reflux disease. 6. Chronic obstructive pulmonary disease. 7. Portal hypertension. 8. He has had an elbow fracture with repair. 9. History for necrotizing fasciitis of the right hand which was operated upon. OTHER PAST SURGICAL HISTORY 1. 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 2. History for hernia repair. 3. Tonsillectomy . 4. Appendectomy. 5. LASIK surgery of the eyes. HABITS The patient smoked one pack per day for 30 years and quit 3 years back. Uses marijuana. Alcohol use has been heavy in the past and quit three months ago. ALLERGIES None listed. FAMILY HISTORY Noncontributory. REVIEW OF SYSTEMS The patient's main complaint is right upper quadrant pain. He has an occasional cough and mild wheezing. He is not short of breath at rest and presently off oxygen and saturating over 92%. There is no hemoptysis. There is no leg swelling or calf muscle pain. No anxiety, no depression and presently no vomiting or diarrhea. PHYSICAL EXAMINATION GENERAL: This averagely built middle-aged man who is alert, pale and in no acute distress. VITAL SIGNS: Blood pressure is 120/70, pulse is 90, respirations are 16, temperature 97.8. HEENT: Head normocephalic. Pupils reactive. Tongue is dry. Throat is clear. NECK: Supple, without lymphadenopathy or venous distension. CHEST: Equal movements with diminished breath sounds over the periphery. Percussion note resonant throughout. Occasional wheezes are heard bilaterally. HEART: The heart sounds are regular. S1 and S2; no murmur. ABDOMEN: Protuberant with tenderness in the right upper quadrant with the liver just felt below the costal margin. Bowel sounds are active. EXTREMITIES: No lesions. No edema or calf tenderness. NEUROLOGICALLY: There are no gross motor deficits and cranial nerves are grossly intact. RECTAL: Exam is deferred. The patient is alert and oriented. SKIN: No lesions noted. IMPRESSION 1. Right mid-lung pneumonia, possible aspiration pneumonia resolving slowly. 2. COPD. 3. History of cirrhosis of the liver. 4. History of gallstones. 5. Chronic kidney disease. PLAN The patient overall is on antibiotic coverage which will continue including Levaquin and Flagyl, nebulized DuoNeb solution added q.i.d. and bedside pulmonary function study to be done. The patient's pneumonia is probably clearing slowly. We will get a follow-up chest x-ray and his incentive spirometry every 2 hours. If the infiltrate does not clear within the next 2 weeks, bronchoscopy would be considered. I will discuss the case with you Dr. Reynolds. Thank you for this consultation MD TRAN Rivas/CECILIA /11:48 AM /12:08 PM
[2017-02-12] MEDS ORDERED: OXYC-392 PO (12:31)
[2017-02-12] MEDS ORDERED: SYMB80AE INH (12:31)
[2017-02-12] MEDS ORDERED: LEVA750T PO (12:34)
[2017-02-12 13:04] VITALS: O2SAT 95
[2017-02-12] MEDS ORDERED: METR-1 PO (13:40)
--- NOTE | 2017-02-12 13:46 | HHI.DCPOC ---
Discharge Care Plan Diagnosis: (1) Pneumonia (2) Cholecystitis (3) Acute worsening of stage 3 chronic kidney disease Goals to Promote Your Health * To prevent worsening of your condition and complications * To maintain your health at the optimal level Directions to Meet Your Goals Take your medications as prescribed Follow your dietary instruction Follow activity as directed Keep your appointments as scheduled Take your immunizations and boosters as scheduled If your symptoms worsen call your PCP, if no PCP go to Urgent Care Center or Emergency Room Smoking is Dangerous to Your Health. Avoid second hand smoke Call the 24-hour hour crisis hotline for domestic abuse at Yumiko Reynolds MD February 12, 2017 13:46
--- NOTE | 2017-02-12 13:47 | HHI.DCPOC ---
Discharge Care Plan Diagnosis: (1) Pneumonia (2) Cholecystitis (3) Acute worsening of stage 3 chronic kidney disease Goals to Promote Your Health * To prevent worsening of your condition and complications * To maintain your health at the optimal level Directions to Meet Your Goals Take your medications as prescribed Follow your dietary instruction Follow activity as directed Keep your appointments as scheduled Take your immunizations and boosters as scheduled If your symptoms worsen call your PCP, if no PCP go to Urgent Care Center or Emergency Room Smoking is Dangerous to Your Health. Avoid second hand smoke Call the 24-hour hour crisis hotline for domestic abuse at Yumiko Reynolds MD February 12, 2017 13:47
--- NOTE | 2017-02-12 13:49 | HHI.DS ---
Discharge Summary Admission Date February 03, 2017 at 17:43 Discharge Date: February 12, 2017 Admitting Diagnosis abdominal pain h/o cholelithiasis; pneumonia-lung mass (1) Cholelithiasis ICD Code: K80.20 Diagnosis: Principal (2) Cirrhosis of liver ICD Code: K74.60 Diagnosis: Secondary (3) Acute worsening of stage 3 chronic kidney disease ICD Code: N18.3 Diagnosis: Principal (4) Pneumonia ICD Code: J18.9 Diagnosis: Principal Procedures 02/05/17 ERCP with stent placement 02/11/16 laparoscopic cholecystectomy with liver biopsy Brief History - From Admission The patient is a 61-year-old male with past medical history of cirrhosis secondary to alcohol abuse who is presenting to the hospital with nausea/ vomiting/ diarrhea and abdominal pain. He states that a day and a half ago he got ice cream and was unable to finish it so he put the remainder of the ice cream in the freezer. Later on he took out the ice cream from the freezer and finished it and 6 hours later he started to develop nausea and vomiting. He believes he got food poisoning from the ice cream. He said that he took Pepto- Bismol and milk of magnesia. He tried to follow through with a bland diet to try and improve his symptoms. He also describes having diarrhea that he said was watery in nature. He also complained of right upper quadrant abdominal pain. The pain in the abdomen was quite severe in nature. He said his symptoms pretty much stopped when he came to the emergency department at 1 AM. The patient also endorses some shortness of breath and mucus production. CBC/BMP: 02/11/17 0756 02/11/17 0756 Significant Findings Laboratory Tests Test 02/11/17 07:56 White Blood Count 15.6 TH/MM3 (4.0-11.0) Red Blood Count 3.99 MIL/MM3 (4.50-5.90) Hemoglobin 11.3 GM/DL (13.0-17.0) Hematocrit 34.7 % (39.0-51.0) Neutrophils (%) (Auto) 81.5 % (16.0-70.0) Neutrophils # (Auto) 12.7 TH/MM3 (1.8-7.7) Monocytes # (Auto) 1.0 TH/MM3 (0-0.9) Estimat Glomerular Filtration 61 ML/MIN (>89) Rate Random Glucose 112 MG/DL (74-106) Imaging Last Impressions Lung Biopsy CT 02/09/17 Signed Impressions: Service Date/Time: Thursday, February 09, 2017 10:59 - CONCLUSION: Uncomplicated CT guided biopsy of right lung mass. Slick Wilson MD ADDENDUM: Pathology revealed acute suppurative and chronic organizing pneumonia. Neoplastic etiology is not excluded. Recommend aggressive antibiotic treatment and followup CT chest in 6-8 weeks to ensure resolution. Patient may need a followup bronchoscopy and/or PET CT scan. Slick Wilson MD Chest X-Ray 02/09/17 Signed Impressions: Service Date/Time: Thursday, February 09, 2017 17:40 - CONCLUSION: No evidence of pneumothorax status post biopsy. Aki Coronel MD Consultation 02/06/17 Signed Impressions: Service Date/Time: Monday, February 06, 2017 00:00 - CONCLUSION: 1. The right middle lobe lung mass biopsy will not be performed today since the patient has recently eaten. We can perform as an outpatient electively or we would be happy to perform on Thursday if the patient is still an inpatient. 2. If the patient will still be in the hospital on Thursday, recommend making the patient n.p.o. after midnight on Thursday night in preparation for the procedure. Jose Fernández MD GI Procedure 02/05/17 Signed Impressions: Service Date/Time: February 08:42 - CONCLUSION: ERCP as above. Mejia Polk Jr., MD Gall Bladder Ultrasound 02/03/17 Signed Impressions: Service Date/Time: Friday, February 03, 2017 07:40 - CONCLUSION: 1. Dependent sludge/small stones in the gallbladder lumen, unchanged. 2. Heterogeneous hepatic echotexture suggesting scattered fatty infiltration. No focal mass lesions. 3. CBD is mildly prominent at 8 mm. 4. Very small amount of perihepatic ascites. Bang Archibald MD Cholangiopancreatography MRI 02/03/17 Signed Impressions: Service Date/Time: Friday, February 03, 2017 13:59 - CONCLUSION: 1. Suspected choledocholithiasis. 2 filling defects involving the inferior common bile duct measuring 6 and 4 mm. The common bile duct measures 7 mm which is just out of the range of normal for patient this age. 2. Sludge and stones involving the gallbladder. No pericholecystic fluid. Mejia Polk Jr., MD Chest CT 02/03/17 0000 Signed Impressions: Service Date/Time: Friday, February 03, 2017 03:44 - CONCLUSION: 1. 5.2 x 3.7 cm mass in the right middle lobe. Malignancy is not excluded. This would be accessible to percutaneous biopsy. Camilo Mckeon MD Abdomen/Pelvis CT 02/03/17 0000 Signed Impressions: Service Date/Time: Friday, February 03, 2017 03:29 - CONCLUSION: 1. No evidence of acute abdominal or pelvic process. No masses are identified. 2. Cholelithiasis Camilo Mckeon MD PE at Discharge GENERAL: in NAD. CARDIOVASCULAR: Regular rate and rhythm without murmurs, gallops, or rubs. RESPIRATORY: Breath sounds equal bilaterally. No accessory muscle use. GASTROINTESTINAL: Abdomen soft, + TTP in RUQ, nondistended. MUSCULOSKELETAL: No cyanosis, or edema. BACK: Nontender without obvious deformity. No CVA tenderness. Pt update on day of discharge Follow-up for abdominal pain and pneumonia Patient's very anxious and asking to go home today. He stated that he must go home today. He denies any type pain. Denying nausea or vomiting. Patient stated he is doing very well. Patient denies any shortness of breathing or cough. He stated that he does not want a bronchoscopy or any more procedures at the moment. Patient also stated that he had a bronchoscopy in the past and that was negative. Hospital Course Cholecystitis with common bile duct obstruction - MRCP shows choledocholithiasis. S/P ERCP with stent placement. CBD stones removed. -Patient was on antibiotics for possible cholangitis with Levaquin and Flagyl. After the cholecystectomy with liver biopsy done on 02/10/2017 patient did very well. Before discharge she was at his baseline M pain was controlled and tolerating by mouth intake. Per recommendation of general surgery the recommend Levaquin and Flagyl for 5 more days at discharge. Chronic pneumonia -Found on CT scan. Patient was asymptomatic. -Status post CT-guided lung biopsy on 02/11/16. - Chest x-ray shows no pneumothorax following procedure. -Biopsy showed chronic pneumonia. Senior Contract Specialist consulted and recommended a bronchoscopy. Patient declined bronchoscopy with the jailer chief. I spoke to patient regards to bronchoscopy to rule out other etiology such as cancer. Patient continued to decline. Patient stated that he understood the risks and benefits of the bronchoscopy but does not want to pursue any procedures. -Patient was on Levaquin and Flagyl for his abdominal infection. Which covered for the pneumonia. Most likely patient had aspiration pneumonia. Cirrhosis of the liver: - Secondary to alcohol abuse. Patient reportedly quit drinking in August. Follow-up as outpatient with GI. Acute renal insufficiency superimposed on chronic kidney disease stage III: -Diuretics was held. Creatinine improved drastically. -Resolved during hospitalization. -Lasix was discontinued due to the severity of his renal sufficiency. Patient to follow with his PCP in regards to restarting diuretic if needed. Leukocytosis: -Recurred. Most likely second very to reactive inflammation secondary surgery. Pt Condition on Discharge: Good Discharge Disposition: Discharge Home Discharge Time: > 30 minutes Discharge Instructions DIET: Follow Instructions for: Heart Healthy Diet Activities you can perform: Regular-No Restrictions Follow up Referrals: PCP Follow-up - 1 Week Pulmonology - 2 Weeks with Gavin Campos MD Surgical - 1 Week New Medications: Levofloxacin (Levaquin) 750 Mg Tab 750 MG PO DAILY Infection #5 Ref 0 TAB Budesonide-Formoterol Inh (Symbicort Inh) 80-4.5 Mcg/Act Aero 1 PUFF INH Q12HR COPD #1 Ref 0 INHALER Metronidazole (Flagyl) 500 Mg Tab 500 MG PO Q8HR infection #15 Ref 0 TAB Oxycodone (Oxycodone) 5 Mg Tab 5 MG PO Q6H PRN pain #20 Ref 0 TAB Continued Medications: Diazepam (Diazepam) 5 Mg Tab 5 MG PO BID PRN ANXIETY Ref 0 TAB Diphenhydramine HCl (Benadryl Allergy) 25 Mg Cap Fluoxetine (Fluoxetine) 20 Mg Cap 20 MG PO DAILY #30 Ref 0 CAP Lactulose (Encephalopathy) Liq (Lactulose Liq) 19 Gm/15 Ml Soln 30 ML PO TID Pantoprazole (Protonix) 20 Mg Tab 20 MG PO DAILY Reflux #30 Ref 0 TAB Pravastatin (Pravastatin) 20 Mg Tab 20 MG PO DAILY Cholesterol Management #30 Ref 0 TAB Propranolol (Propranolol) 20 Mg Tab 20 MG PO Q12HR #60 Ref 0 TAB Quetiapine XR (Seroquel XR) 300 Mg Tab 300 MG PO DAILY #30 Ref 0 TAB Discontinued Medications: Furosemide (Lasix) 20 Mg Tab 20 MG PO DAILY #30 Ref 0 TAB Spironolactone (Spironolactone) 25 Mg Tab 12.5 MG PO DAILY #15 Ref 0 TAB Yumiko Reynolds MD February 12, 2017 13:49
[2017-02-12] MEDS ORDERED: metroNIDAZOLE 500 MG TAB PO SCH (14:00)
[2017-02-13] MEDS ORDERED: LEVOFLOXACIN 500 MG TAB PO SCH (09:00)
== END 2017-02-12 15:58 | disposition home or self-care (01) | DRG 417 ==
LOC: PHED 01:11 → PHEDA 05:41 → PH3B 08:05 → OBSVTOIN 17:43 → HOCB 20:07
PROVIDERS: ADMIT Family Medicine; ATTEND Family Medicine
PROC: 0FC98ZZ Extirpation of Matter from Common Bile Duct, Via Natural or Artificial Opening Endoscopic (ICD-10-PCS; 2017-02-05)
PROC: 0F9980Z Drainage of Common Bile Duct with Drainage Device, Via Natural or Artificial Opening Endoscopic (ICD-10-PCS; 2017-02-05)
PROC: 0BBK3ZX Excision of Right Lung, Percutaneous Approach, Diagnostic (ICD-10-PCS; 2017-02-09)
PROC: 0FB03ZX Excision of Liver, Percutaneous Approach, Diagnostic (ICD-10-PCS; 2017-02-10)
PROC: 0FT44ZZ Resection of Gallbladder, Percutaneous Endoscopic Approach (ICD-10-PCS; principal; 2017-02-10 08:45)
DX: K80.63 Calculus of gallbladder and bile duct with acute cholecystitis with obstruction (principal); J85.0 Gangrene and necrosis of lung; J69.0 Pneumonitis due to inhalation of food and vomit; K76.6 Portal hypertension; K70.31 Alcoholic cirrhosis of liver with ascites; J44.9 Chronic obstructive pulmonary disease, unspecified; N18.3 Chronic kidney disease, stage 3 (moderate); F31.9 Bipolar disorder, unspecified; E78.5 Hyperlipidemia, unspecified; F41.8 Other specified anxiety disorders; I12.9 Hypertensive chronic kidney disease with stage 1 through stage 4 chronic kidney disease, or unspecified chronic kidney disease; E78.00 Pure hypercholesterolemia, unspecified; K21.9 Gastro-esophageal reflux disease without esophagitis; Z87.891 Personal history of nicotine dependence; Z85.818 Personal history of malignant neoplasm of other sites of lip, oral cavity, and pharynx; K31.89 Other diseases of stomach and duodenum; F12.90 Cannabis use, unspecified, uncomplicated; Z87.828 Personal history of other (healed) physical injury and trauma
CPT/HCPCS: 32405; 71010; 71250; 74177; 74181; 74330; 76377; 76705; 77012; 80048; 80053; 81001; 83605; 83690; 83735; 84484; 85025; 85610; 86850; 86900; 86901; 87040; 87070; 87077; 87186; 87205; 88304; 88305; 88307; 88313; 93005; 94640; 94664; 96365; 96375; 96376; C1769; C2625; J0131; J0295; J1100; J1170; J1956; J2250; J2270; J2405; J2543; J2710; J3010; J3480; Q9967

== ENCOUNTER 2018-05-17 01:38 | Observation (INO) ==
[2018-05-17] MEDS ORDERED: Morphine Inj 4 MG/ML Vial IV.PUSH ONE (02:29)
[2018-05-17] MEDS ORDERED: Sodium Chlor 0.9% Inj 500 ML IV.SIG ONE (02:29)
[2018-05-17 03:09] LABS: Baso % (Auto) 0.4 % (0.0-2.0); Eos # (Auto) 0.1 th/mm3 (0.0-0.4); Eos % (Auto) 0.6 % (0.0-4.0); Hematocrit 39.5 % (39.0-51.0); Hemoglobin 13.3 gm/dL (13.0-17.0); Lymph % (Auto) 7.3 % (9.0-44.0); Mean Corpuscular HGB Conc 33.8 % (32.0-36.0); Mean Corpuscular Hemoglobin 29.1 pg (27.0-34.0); Mean Corpuscular Volume 86.2 fL (80.0-100.0); Mean Platelet Volume 9.7 fL (7.0-11.0); Mono # (Auto) 0.7 th/mm3 (0.0-0.9); Mono % (Auto) 5.2 % (0.0-8.0); Neut # (Auto) 11.9 th/mm3 (1.8-7.7); Neut % (Auto) 86.5 % (16.0-70.0); Platelet Count 259 th/mm3 (150-450); Red Blood Count 4.58 mil/mm3 (4.50-5.90); Red Cell Distribution Width 15.6 % (11.6-17.2); White Blood Count 13.7 th/mm3 (4.0-11.0)
[2018-05-17 03:21] LABS: Activated Partial Thrombo Time 23.6 sec (24.3-30.1); INR 1.1 Ratio; Prothrombin Time 10.8 sec (9.8-11.6)
[2018-05-17 03:32] LABS: Alanine Aminotransferase 19 U/L (12-78); Albumin 3.3 g/dL (3.4-5.0); Anion Gap 12 meq/L (5-15); Aspartate Aminotransferase 29 U/L (15-37); Blood Urea Nitrogen 15 mg/dL (7-18); Calcium 9.3 mg/dL (8.5-10.1); Chloride 106 meq/L (98-107); Glomerular Filtration Rate 81 mL/min (>89); Glucose,Random 131 mg/dL (74-106); Lipase 130 U/L (73-393); Magnesium 1.8 mg/dL (1.5-2.5); Potassium 3.2 meq/L (3.5-5.1); Sodium 138 meq/L (136-145)
[2018-05-17 03:34] LABS: Alkaline Phosphatase 80 U/L (45-117); Total Protein 8.1 g/dL (6.4-8.2)
[2018-05-17 03:36] LABS: Creatine Kinase 28 U/L (39-308)
--- NOTE | 2018-05-17 03:40 | ED ---
HPI General Chief complaint: Altered Mental Status Stated complaint: Confusion Time Seen by Provider: 05/17/18 01:51 Source: patient and EMS Mode of arrival: EMS Limitations: no limitations History of Present Illness HPI narrative: The patient is a 62 year old male who presents to the [facility] emergency department with a history of chest pain that began 2 days ago. The patient reports the pain is coming and going. He reports that the character of the pain is sharp in character. He reports that it is severe. He denies any known alleviating or aggravating factors. He reports that he has had associated nausea, vomiting, and diarrhea. He reports that he has not been able to keep any food or liquids down. Patient points to the location of the pain is in the lower central chest to upper mid epigastric abdomen. He reports that the pain takes his breath away. He reports that when the pain is not present he does not have shortness of breath. He denies having any lower extremity edema, calf pain, or erythema. On review of systems otherwise, the patient denies having any known recent fevers, cough or congestion, neck pain, urinary symptoms, or neurologic symptoms. Incidentally, all of this history is provided by the patient, however after discussion further with the patient's nurse, ambulance services had reported that the patient had altered mentation and was difficult to awaken prior to arrival requiring sternal rub stimulation. The patient denies to me having any tobacco, alcohol, or drug use. He reports that he quit drinking alcohol when he was diagnosed with cirrhosis. Related Data Previous Rx's Medication Instructions Recorded azithromycin 250 mg PO DAILY 4 Days #4 tab 05/17/18 Allergies Allergy/AdvReac Type Severity Reaction Status Date / Time No Known Allergies Allergy Verified 05/17/18 01:57 Review of Systems ROS: all other systems reviewed are negative (Except for that which was mentioned in the HPI.) [facility] Medical History Medical History Anxiety and depression (Acute) Chronic kidney disease (Acute) Cirrhosis (Acute) GERD (gastroesophageal reflux disease) (Acute) H/O thyroidectomy (Acute) History of salivary gland cancer (Acute) Hyperlipidemia (Acute) Hypertension (Acute) Surgical History Surgical History H/O hernia repair (Acute) History of appendectomy (Acute) History of tonsillectomy (Acute) Hx of cholecystectomy (Acute) S/P wrist surgery (Acute) Social History Social History Substance History: Past History Second Hand Smoke Exposure: No Smoking Status: Former smoker Tobacco Type: Cigarettes How Often Do You Have a Drink Containing Alcohol: Never Recent Travel in [place] within the Last 8 Weeks: No Recent Out of Country Travel within the Last 8 Weeks: No Immunization History Tetanus Immunization: Unsure Hx Influenza Vaccine This Season: No Exam Const General: cooperative, well developed and acute distress (The patient has intermittent sharp pains that cause him to gasp intermittently.) mild Nutritional Appearance: well nourished Orientation: alert, awake and oriented x3 HENMT Head: normocephalic and atraumatic Nose: no nasal discharge and no epistaxis Mouth: moist mucous membranes Throat: posterior oropharynx normal and uvula midline Eyes Sclera: normal sclerae Pupils: PERRL Neck Neck: no meningeal signs, trachea midline and no JVD Resp Effort & Inspection: no use of accessory muscles Auscultation: clear to auscultation bilaterally Cardio Rate: regular rate Rhythm: regular rhythm Heart Sounds: no murmurs GI Inspection: non-distended Palpation: soft, no hepatosplenomegaly and tender in the epigastrum; not in the LLQ, not in the RLQ, not in the LUQ, not in the RUQ, not at McBurney's point and Delacruz's sign negative Auscultation: normal bowel sounds Back/Spine/Pelvis Back: no CVA tenderness Skin General: dry skin (warm) Neuro General: alert, awake and oriented x3 Cranial Nerves: CN's II-XI intact bilaterally Speech: speech normal Motor: strength 5/5 throughout and no movement abnormalities noted Sensory Exam: no sensory deficits noted Extrem General: normal to inspection (No calf tenderness on palpation. 2+ pulses in all 4 extremities.), no clubbing, no cyanosis and no edema Psych Mood: congruent mood Affect: normal affect Judgment: judgment good Course Initial Documented Vital Signs Temperature 98.9 F 05/17/18 01:43 Pulse Rate 78 05/17/18 01:43 Respiratory Rate 20 05/17/18 01:43 Blood Pressure 143/73 H 05/17/18 01:43 Pulse Oximetry 99 05/17/18 01:43 Last Documented Vital Signs Temperature 98.9 F 05/17/18 01:43 Pulse Rate 82 05/17/18 03:08 Respiratory Rate 16 05/17/18 04:13 Blood Pressure 122/75 05/17/18 03:08 Pulse Oximetry 96 05/17/18 03:08 Medical Decision Making MDM Narrative Medical decision making narrative: During the course of the patient's emergency department visit, the patient's history, examination, and differential diagnosis were reviewed with the patient. The patient was placed on a lesson instructor with oximetry and frequent blood pressure monitoring. The patient had IV access obtained and blood work sent for analysis. Diagnostic evaluation was started regarding the patient's symptoms of chest pain and shortness of breath. The patient was initially provided aspirin 324 mg p.o. 1, nitroglycerin sublingual 1, morphine for pain, Zofran for nausea. The patient's diagnostic evaluation is remarkable for a chemistry that shows a troponin I of less than 0.02, CPK 28, glucose 131, potassium 3.2 which will be supplemented orally, magnesium 1.8, lipase within normal limits, CO2 20.0, BNP is 44, albumin 3.3, PT PTT unremarkable, CBC shows a white count of 13.7, neutrophil percent 86.5, platelets are 259, hemoglobin 13.3. A chest x-ray shows minimal density left upper lobe which could be subsegmental atelectasis versus minimal infiltrate, CT scan of the abdomen and pelvis shows cirrhotic liver, a stent in the common bile duct without obstruction, status post cholecystectomy, no acute inflammatory process, right renal cyst, minimal patchy density in lung bases. I suspect that the atelectasis may be related to patchy densities in lung bases may be atelectasis as the patient denies any significant cough or congestion, fevers or chills, however the patient is noted to have an elevated white blood cell count. The patient will be treated with an oral antibiotic. The patient denies ever having chest pain like this previously and denies any prior history of cardiac disease. He cannot recall ever having a stress test. The patient will be admitted to the chest pain center for rule out serial cardiac enzyme protocol followed by consideration of stress testing. The patient's results were discussed with the patient, including the plan of care. I explained that further testing and/ or monitoring is indicated based on the patient's history, examination, and/ or laboratory findings. Therefore, I recommended admission for additional evaluation. The patient expressed understanding and was agreeable with this plan. The patient was admitted to the hospital in stable condition and sent to a bed under the care of the [facility]. Differential Diagnosis Differential Diagnosis: Acute coronary syndrome, versus pancreatitis, versus congestive heart failure Medical Records Medical records reviewed: Yes I reviewed the patient's medical records. Lab Data Lab results reviewed: Yes I reviewed the patient's lab results. Result diagrams: 05/17/18 02:40 05/17/18 02:40 Lab Results 05/17/18 05/17/18 05/17/18 Range/Units 02:40 02:40 02:40 WBC 13.7 H (4.0-11.0) th/mm3 RBC 4.58 (4.50-5.90) mil/mm3 Hgb 13.3 (13.0-17.0) gm/dL Hct 39.5 (39.0-51.0) % MCV 86.2 (80.0-100.0) fL MCH 29.1 (27.0-34.0) pg MCHC 33.8 (32.0-36.0) % RDW 15.6 (11.6-17.2) % Plt Count 259 (150-450) th/mm3 MPV 9.7 (7.0-11.0) fL Neut % (Auto) 86.5 H (16.0-70.0) % Lymph % (Auto) 7.3 L (9.0-44.0) % [place] % (Auto) 5.2 (0.0-8.0) % Eos % (Auto) 0.6 (0.0-4.0) % Baso % (Auto) 0.4 (0.0-2.0) % Neut # (Auto) 11.9 H (1.8-7.7) th/mm3 Lymph # (Auto) 1.0 (1.0-4.8) th/mm3 [place] # (Auto) 0.7 (0.0-0.9) th/mm3 Eos # (Auto) 0.1 (0.0-0.4) th/mm3 Baso # (Auto) 0.0 (0.0-0.2) th/mm3 WBC Differential . Differential Comment Auto diff final PT 10.8 (9.8-11.6) sec INR 1.1 Ratio APTT 23.6 L (24.3-30.1) sec Sodium 138 (136-145) meq/L Potassium 3.2 L (3.5-5.1) meq/L Chloride 106 (98-107) meq/L Carbon Dioxide 20.0 L (21.0-32.0) meq/L Anion Gap 12 (5-15) meq/L BUN 15 (7-18) mg/dL Creatinine 0.94 (0.60-1.30) mg/dL Estimated GFR 81 L (>89) mL/min Random Glucose 131 H (74-106) mg/dL Calcium 9.3 (8.5-10.1) mg/dL Magnesium 1.8 (1.5-2.5) mg/dL Total Bilirubin 0.7 (0.2-1.0) mg/dL AST 29 (15-37) U/L ALT 19 (12-78) U/L Alkaline Phosphatase 80 (45-117) U/L Total Creatine Kinase 28 L (39-308) U/L Troponin I Less than 0.02 L (0.02-0.05) ng/mL B-Natriuretic Peptide (0-100) pg/mL Total Protein 8.1 (6.4-8.2) g/dL Albumin 3.3 L (3.4-5.0) g/dL Lipase 130 (73-393) U/L Serum Alcohol Less than 3 (0-5) mg/dL 05/17/18 Range/Units 02:40 WBC (4.0-11.0) th/mm3 RBC (4.50-5.90) mil/mm3 Hgb (13.0-17.0) gm/dL Hct (39.0-51.0) % MCV (80.0-100.0) fL MCH (27.0-34.0) pg MCHC (32.0-36.0) % RDW (11.6-17.2) % Plt Count (150-450) th/mm3 MPV (7.0-11.0) fL Neut % (Auto) (16.0-70.0) % Lymph % (Auto) (9.0-44.0) % [place] % (Auto) (0.0-8.0) % Eos % (Auto) (0.0-4.0) % Baso % (Auto) (0.0-2.0) % Neut # (Auto) (1.8-7.7) th/mm3 Lymph # (Auto) (1.0-4.8) th/mm3 [place] # (Auto) (0.0-0.9) th/mm3 Eos # (Auto) (0.0-0.4) th/mm3 Baso # (Auto) (0.0-0.2) th/mm3 WBC Differential Differential Comment PT (9.8-11.6) sec INR Ratio APTT (24.3-30.1) sec Sodium (136-145) meq/L Potassium (3.5-5.1) meq/L Chloride (98-107) meq/L Carbon Dioxide (21.0-32.0) meq/L Anion Gap (5-15) meq/L BUN (7-18) mg/dL Creatinine (0.60-1.30) mg/dL Estimated GFR (>89) mL/min Random Glucose (74-106) mg/dL Calcium (8.5-10.1) mg/dL Magnesium (1.5-2.5) mg/dL Total Bilirubin (0.2-1.0) mg/dL AST (15-37) U/L ALT (12-78) U/L Alkaline Phosphatase (45-117) U/L Total Creatine Kinase (39-308) U/L Troponin I (0.02-0.05) ng/mL B-Natriuretic Peptide 44 (0-100) pg/mL Total Protein (6.4-8.2) g/dL Albumin (3.4-5.0) g/dL Lipase (73-393) U/L Serum Alcohol (0-5) mg/dL Imaging Data Radiologist's impression: Chest X-Ray 05/17/18 02:29 CONCLUSION: Minimal density left upper lobe could be subsegmental atelectasis versus minimal infiltrate. Abdomen/Pelvis CT 05/17/18 03:38 CONCLUSION: 1. Cirrhotic liver. 2. Stent in the common bile duct without obstruction. 3. Status post cholecystectomy. 4. No acute inflammatory process. 5. Right renal cyst. 6. Minimal patchy densities in lung bases. ECG Data Attestation: I personally reviewed and interpreted this ECG as follows: Interpretation: The patient had an EKG done on arrival. The patient's EKG reveals sinus rhythm heart rate of 83, QRS duration 90 ms, QTC [address] segment elevation is noted. T waves are inverted in V1. Discharge Plan Discharge Disposition Patient Disposition: 30 Still Patient Discharge Details Diagnosis: Chest pain, rule out acute myocardial infarction Physicians Team ED Provider: Mona Mcgraw Primary Care Provider: UNKNOWN, Rxs /Orders / Referrals /Forms Prescriptions: New azithromycin 250 mg tablet 250 mg PO DAILY 4 Days Qty: 4 RF: 0 Discharge Interventions Interventions: Vital Signs Last Done: 05/17/18 02:01 Status ED Status: With Doctor
--- NOTE | 2018-05-17 04:06 | XR ---
EXAM DATE: 05/17/2018 3:30 AM EDT AGE/SEX: 62 years / Male INDICATIONS: Shortness of breath. CLINICAL DATA: This is the patient's initial encounter. Patient reports that signs and symptoms have been present for 1 day and indicates a pain score of 0/10. MEDICAL/SURGICAL HISTORY: None. None. COMPARISON: [facility] [place], 02/09/2017. . FINDINGS: A single AP view of the chest demonstrates the lungs to be hyperaerated without evidence of mass, inf iltrate or effusion. Minimal densities in the left upper lobe. The cardiomediastinal contours are unr emarkable. Osseous structures are intact. CONCLUSION: Minimal density left upper lobe could be subsegmental atelectasis versus minimal infiltrate. Electronically signed by: Slick Wilson MD 05/17/2018 4:05 AM EDT
--- NOTE | 2018-05-17 04:24 | CT ---
EXAM DATE: 05/17/2018 4:11 AM EDT AGE/SEX: 62 years / Male INDICATIONS: Abdominal pain CLINICAL DATA: This is the patient's initial encounter. Patient reports that signs and symptoms have been present for 1 day and indicates a pain score of 6/10. MEDICAL/SURGICAL HISTORY: None. Substance abuse None. ORAL CONTRAST: No oral contrast ingested. RADIATION DOSE: 10.70 CTDI (mGy) COMPARISON: [facility], CT ABDOMEN & PELVIS W CONTRAST, 02/03/2017. . TECHNIQUE: Multiple contiguous axial images were obtained through the abdomen and pelvis following b olus infusion of 96 ml Omnipaque 350 (iohexol) nonionic water-soluble contrast as a single exam dos e. No oral contrast ingested. Using automated exposure control and adjustment of the mA and/or kV ac cording to patient size, radiation dose was kept as low as reasonably achievable to obtain optimal di agnostic quality images. DICOM format image data is available electronically for review and comparis on. FINDINGS: Lower Lungs: Bibasilar patchy densities. Liver: The liver is nodular without space-occupying lesion. There is no dilation of the biliary tree. Cholecystectomy. Stent in the common bile duct. Spleen: Homogeneous density without enlargement. Pancreas: Unremarkable without mass or calcification. Kidneys: Normal in size and shape. No evidence of mass or hydronephrosis. 11 mm upper pole right shelbi al low-density. Adrenal Glands: Unremarkable. Aorta: The aorta and proximal iliac vessels are grossly unremarkable without aneurysmal dilation. Bowel/Mesentery: The bowel loops are grossly unremarkable. The cecum and sigmoid colon have a normal configuration. Abdominal Wall: Intact. Retroperitoneum: No evidence of adenopathy in the retrocrural, para-aortic, or deep pelvic regions. Bladder: Contours are smooth. Reproductive Organs: No abnormal masses or calcifications seen. Inguinal: Fat-containing right inguinal hernia. The left inguinal region is unremarkable without giovanni dence of adenopathy. Bony Structures: Degenerative changes thoracolumbar spine. Chronic compression deformities at L1 and L2 including kyphoplasty cement at L2.. CONCLUSION: 1. Cirrhotic liver. 2. Stent in the common bile duct without obstruction. 3. Status post cholecystectomy. 4. No acute inflammatory process. 5. Right renal cyst. 6. Minimal patchy densities in lung bases. Electronically signed by: Slick Wilson MD 05/17/2018 4:22 AM EDT
[2018-05-17] MEDS ORDERED: Azithromycin Inj 500 MG in Sodium Chlor 0.9% Inj 250 ML IV.SIG ONE (04:58)
[2018-05-17 05:52] LABS: Bacteria,Urine Occasional /hpf; Bilirubin,Urine Negative (Negative); Clarity,Urine Clear (Clear); Color,Urine Yellow (Yellw/Straw); Glucose,Urine (UA) Negative (Negative); Leukocyte Esterase,Urine Negative (Negative); Mucus,Urine Few /lpf (Occasional); Nitrite,Urine Negative (Negative); Specific Gravity,Urine 1.028 (1.002-1.035); Sperm,Urine Occasional /hpf
[2018-05-17 05:56] LABS: Amphetamine Screen,Urine Neg (Neg); Barbiturate Screen,Urine Neg (Neg); Cannabinoid Screen,Urine Pos (Neg); Cocaine Screen,Urine Neg (Neg)
[2018-05-17 05:57] LABS: Opiate Screen,Urine Pos (Neg)
--- NOTE | 2018-05-17 08:17 | P.HPCA ---
History of Present Illness Primary Care Physician: Dr. Linda Chief Complaint: Abdominal pain History of Present Illness: 62 year old male with history of cirrhosis, hypertension, and hyperlipidemia presents to ER for further evaluation of abdominal pain. Onset Thursday. Location right upper quadrate. Characterized as "pain." Moderate in severity. Denies nausea, vomiting, or bowel changes. Duration constant. Also reports intermittent chest pain 2 days. Location left anterior chest. Characterized as a hot piercing stabbing pain. Moderate in severity. Duration seconds. No associated symptoms. No precipitating or relieving factors. No known coronary disease. No recent illness or injury. Denies any past cardiac testing. - Diagnosis (1) Atypical chest pain (2) Abdominal pain (3) H/O: hypertension Review of Systems All other systems reviewed negative except as stated in HPI PMFSH - History History Provided By: Sustainability Officer / EMT - Medical History Medical History: Medical History (Last Reviewed 05/17/18 @ 10:26 by YADIRA Barajas) Anxiety and depression Chronic kidney disease Cirrhosis GERD (gastroesophageal reflux disease) H/O thyroidectomy History of salivary gland cancer Hyperlipidemia Hypertension - Surgical History Surgical History: Surgical History (Last Reviewed 05/17/18 @ 10:26 by YADIRA Barajas) H/O hernia repair History of appendectomy History of tonsillectomy Hx of cholecystectomy S/P wrist surgery - Tobacco History Second Hand Smoke Exposure: No Tobacco Use In Past 30 Days: No Smoking Status: Former smoker (quit 2014) Tobacco Type: Cigarettes Packs Per Day: 1 Years Smoked: 42 - Alcohol History How Often Do You Have a Drink Containing Alcohol: Never (quit drinking alcohol) - Substance Use History Substance History: Past History (denies recreational drug use, positive for marijuana and opiods toxic screen) - Travel History Recent Travel in the [facility] Within the Last 8 Weeks: No Recent Travel Out of the Country Within the Last 8 Weeks: No - Immunization History Tetanus Immunization: Unsure Hx Influenza Vaccine This Season: No Medications and Allergies Active Medications: Active Medications Sodium Chloride (Ns Flush) 2 ml IV.FLUSH UNSCH PRN PRN Reason: FLUSH AFTER USING IV ACCESS Allergies Allergy/AdvReac Type Severity Reaction Status Date / Time No Known Allergies Allergy Verified 05/17/18 01:57 Home Medications Medication Instructions Recorded Confirmed Type Lasix tab PO 05/17/18 History Exam Vital signs: Vital Signs 05/17/18 01:43 05/17/18 02:01 05/17/18 03:07 Temperature 98.9 F Pulse Rate 78 77 82 Respiratory Rate 20 15 Blood Pressure 143/73 H 133/75 Pulse Oximetry 99 98 96 05/17/18 03:08 05/17/18 03:22 05/17/18 04:13 Temperature Pulse Rate 82 Respiratory Rate 16 16 16 Blood Pressure 122/75 Pulse Oximetry 96 05/17/18 05:53 Temperature Pulse Rate 75 Respiratory Rate 14 Blood Pressure 132/69 Pulse Oximetry 97 Intake & Output 05/16/18 05/17/18 05/17/18 18:59 06:59 18:59 Weight 63.503 kg Narrative: GENERAL: Alert WN, WD, NAD, bizarre behavior, male who appears older than stated age. HEAD: NC, AT NECK: Supple, no masses, trachea midline CV: RRR, without murmur, rub, gallop, no JVD. No carotid bruits. Chest wall nontender with palpation. RESP: Clear lungs throughout bilateral, no crackles, wheeze, rhonchi, symmetrical chest rise, nonlabored, able to speak in full sentences ABD: Soft, NT, ND, no masses, positive bowel tone EXT: Pulses +2x4, no dependent edema MS: Normal tone x4 extremities, nontender, no obvious deformities, full range of motion NEURO: CN II through CN XII grossly intact, motor strength 5/5 PSYCH: A+O x3, flat affect, appropriate speech, mood, questionable insight and judgment suspect psychiatric history SKIN: Normal turgor, normal texture, no lesions, no rashes, brisk cap refill, even hair distribution Results 05/17/18 02:40 05/17/18 02:40 Cardiac Enzymes 05/17/18 05/17/18 Range/Units 02:40 02:40 AST 29 (15-37) U/L Troponin I Less than 0.02 L (0.02-0.05) ng/mL B-Natriuretic Peptide 44 (0-100) pg/mL Coagulation 05/17/18 05/17/18 Range/Units 02:40 02:40 PT 10.8 (9.8-11.6) sec APTT 23.6 L (24.3-30.1) sec B-Natriuretic Peptide 44 (0-100) pg/mL CBC 05/17/18 Range/Units 02:40 WBC 13.7 H (4.0-11.0) th/mm3 RBC 4.58 (4.50-5.90) mil/mm3 Hgb 13.3 (13.0-17.0) gm/dL Hct 39.5 (39.0-51.0) % Plt Count 259 (150-450) th/mm3 Neut # (Auto) 11.9 H (1.8-7.7) th/mm3 Lymph # (Auto) 1.0 (1.0-4.8) th/mm3 [place] # (Auto) 0.7 (0.0-0.9) th/mm3 Eos # (Auto) 0.1 (0.0-0.4) th/mm3 Baso # (Auto) 0.0 (0.0-0.2) th/mm3 Comprehensive Metabolic Panel 05/17/18 Range/Units 02:40 Sodium 138 (136-145) meq/L Potassium 3.2 L (3.5-5.1) meq/L Chloride 106 (98-107) meq/L Carbon Dioxide 20.0 L (21.0-32.0) meq/L BUN 15 (7-18) mg/dL Creatinine 0.94 (0.60-1.30) mg/dL Calcium 9.3 (8.5-10.1) mg/dL AST 29 (15-37) U/L ALT 19 (12-78) U/L Alkaline Phosphatase 80 (45-117) U/L Total Protein 8.1 (6.4-8.2) g/dL Albumin 3.3 L (3.4-5.0) g/dL Intake and Output 05/16/18 05/17/18 05/17/18 22:59 06:59 14:59 Other: Weight 63.503 kg EKG interpretations - EKG EKG results cardiology: sinus rhythm, normal axis, normal QRS, normal ST/T Caprini VTE Risk Assessment Caprini VTE Risk Assessment: Moderate/High Risk (score >= 2) Caprini Risk Assessment Model: Point Value = 1 Point Value = 2 Point Value = 3 Point Value = 5 Age 41-60 Minor surgery BMI > 25 kg/m2 Swollen legs Varicose veins or History of unexplained or recurrent spontaneous Oral contraceptives or hormone replacement Sepsis (< 1 month) Serious lung disease, including pneumonia (< 1 month) Abnormal pulmonary function Acute myocardial infarction Congestive heart failure (< 1 month) History of inflammatory bowel disease Medical patient at bed rest Age 61-74 Arthroscopic surgery Major open surgery (> 45 min) Laparoscopic surgery (> 45 min) Malignancy Confined to bed (> 72 hours) Immobilizing plaster cast Central venous access Age >= 75 History of VTE Family history of VTE Factor V Leiden Prothrombin [id number] Lupus anticoagulant Anticardiolipin antibodies Elevated serum homocysteine Heparin-induced thrombocytopenia Other congenital or acquired thrombophilia Stroke (< 1 month) Elective arthroplasty Hip, pelvis, or leg fracture Acute spinal cord injury (< 1 month) Prophylaxis Regimen: Total Risk Factor Score Risk Level Prophylaxis Regimen 0-1 Low Early ambulation 2 Moderate Order ONE of the following: *Sequential Compression Device (SCD) *Heparin 5000 units SQ BID 3-4 Higher Order ONE of the following medications: *Heparin 5000 units SQ TID *Enoxaparin/Lovenox 40 mg SQ daily (WT < 150 kg, CrCl > 30 mL/min) *Enoxaparin/Lovenox 30 mg SQ daily (WT < 150 kg, CrCl > 10-29 mL/min) *Enoxaparin/Lovenox 30 mg SQ BID (WT < 150 kg, CrCl > 30 mL/min) AND/OR *Sequential Compression Device (SCD) 5 or more Highest Order ONE of the following medications: *Heparin 5000 units SQ TID (Preferred with Epidurals) *Enoxaparin/Lovenox 40 mg SQ daily (WT < 150 kg, CrCl > 30 mL/min) *Enoxaparin/Lovenox 30 mg SQ daily (WT < 150 kg, CrCl > 10-29 mL/min) *Enoxaparin/Lovenox 30 mg SQ BID (WT < 150 kg, CrCl > 30 mL/min) AND *Sequential Compression Device (SCD) Assessment and Plan - Assessment (1) Atypical chest pain Code(s): R07.89 - Other chest pain Status: Acute Plan: Admitted chest pain center. Seen and evaluated by Dr. Camilo Garcia. Presenting with multiple vague complaints. Proceed with Lexiscan this morning. If unremarkable plans are to discharge home with follow-up with primary care provider. 1240 myocardial perfusion study unremarkable. Discussed results with patient. Continue with plan discharge. Upon informing patient on discharge stated he has chronic low back and neck pain, requesting something for pain. Toradol 30mg previously ordered. Informed him he would have to follow up with his PCP for pain medications and/or pain management referral. States "[employer] won't allow me any more medication because I was over medicated." I haven't have pain medications in 2 weeks, since being "cutted off of my medications." (2) Abdominal pain Code(s): R10.9 - Unspecified abdominal pain Status: Resolved Plan: CT abdomen and pelvis unremarkable. Continue home medications furosemide and spironolactone once updated in EMR. (3) H/O: hypertension Code(s): Z86.79 - Personal history of other diseases of the circulatory system Status: Chronic Plan: Continue to monitor. Continue home medications once available in electronic EMR.
[2018-05-17] MEDS ORDERED: Regadenoson Inj 0.4 MG/5 ML Syringe IV.PUSH ONE (09:58)
[2018-05-17] MEDS ORDERED: Ketorolac Inj 30 MG/ML (IVP) Vial IV.PUSH ONE (11:52)
[2018-05-17 12:00] VITALS: BP 137/76; PULSE 96; RESP 16; TEMP 98; O2SAT 94
--- NOTE | 2018-05-17 12:10 | NM ---
EXAM DATE: 05/17/2018 12:04 PM EDT AGE/SEX: 62 years / Male INDICATIONS:Angina. . Chest pain. CLINICAL DATA: This is the patient's initial encounter. Patient reports that signs and symptoms have been present for 1 day and indicates a pain score of 0/10. MEDICAL/SURGICAL HISTORY: Hypertension. Hypercholesterolemia. Chronic renal insufficiency. S alivary gland cancer. Appendectomy. Thyroidectomy. Cholecystectomy. COMPARISON: No prior exams available for comparison. DOSE: 8.5 mCi Tc 99m Myoview at rest 26.1 mCi [id number] at stress 0.4 mg Lexiscan STRESS SYMPTOMS: Chest tightness. EJECTION FRACTION: 73 % TECHNIQUE: The patient underwent pharmacologic stress with infusion of prescribed dose. Continuous ECG tracing was monitored during stress. Gated SPECT imaging was performed after stress and conventi onal SPECT imaging was performed at rest. The examination was performed on a SPECT/CT scanner, both attenuation and non-corrected datasets were reviewed. FINDINGS: Distribution: The maximum perfused segment at stress is in the septal wall. Perfusion Study: The pattern of perfusion at stress is within normal limits. Gated Study: There are intact wall motion and wall thickening without hypokinetic or dyskinetic segm ents. The ejection fraction is calculated at 73%. RISK CATEGORY: Low (<1% Annual Motality Rate) CONCLUSION: 1. No reversible perfusion defect to indicate stress-induced myocardial ischemia identified. Electronically signed by: Randy Gage MD 05/17/2018 12:08 PM EDT
--- NOTE | 2018-05-17 13:39 | ECG ---
Date Performed: 05/17/2018 Time Performed: 01:44:48 PTAGE: 62 years EKG: Sinus rhythm NORMAL ECG PREVIOUS TRACING : 02/03/2017 02.39 Since previous tracing, no significant change noted DOCTOR: Camilo Garcia Interpretating Date/Time 05/17/2018 13:38:20
--- NOTE | 2018-05-17 13:42 | TR ---
Date Performed: 05/17/2018 Time Performed: 10:50:40 DOCTOR: Camilo Garcia DRUG LIST: CLINICAL HISTORY: REASON FOR TEST: CHEST PAIN REASON FOR ENDING: OBSERVATION: CONCLUSION: COMMENTS: Lexiscan stress test was performed under standard four minute protocol. Radionuclide was injected one minute prior to ending the test. No electrocardiographic abormalities were present t o suggest ischemia. Nuclear imaging and interpretation are pending.
== END 2018-05-17 14:38 | disposition home or self-care (01) ==
LOC: NEDA 01:38 → NEPE 01:38 → NEPHCDU 01:38 → NEDA 08:45 → NEPHCDU 09:14
PROVIDERS: ADMIT Internal Medicine Interventional Cardiology; ATTEND Internal Medicine Interventional Cardiology
DX: E78.5 Hyperlipidemia, unspecified; Z85.818 Personal history of malignant neoplasm of other sites of lip, oral cavity, and pharynx; Z90.49 Acquired absence of other specified parts of digestive tract; K74.60 Unspecified cirrhosis of liver; M54.2 Cervicalgia; N18.9 Chronic kidney disease, unspecified; G89.29 Other chronic pain; F17.210 Nicotine dependence, cigarettes, uncomplicated; F41.9 Anxiety disorder, unspecified; I12.9 Hypertensive chronic kidney disease with stage 1 through stage 4 chronic kidney disease, or unspecified chronic kidney disease; M54.5 Low back pain; I20.9 Angina pectoris, unspecified; K21.9 Gastro-esophageal reflux disease without esophagitis; R07.89 Other chest pain; R10.9 Unspecified abdominal pain; F32.9 Major depressive disorder, single episode, unspecified